=== PATIENT | male | born 1995 | race African-American/Black ===

== ENCOUNTER → 2016-12-05 | Outpatient (CLI) | payer MEDICAID | LOC: M OUTALCOH 13:12 | PROVIDERS: ATTEND Psychiatry & Neurology Psychiatry | DX: Z13.9 Encounter for screening, unspecified (principal); F12.10 Cannabis abuse, uncomplicated ==

== ENCOUNTER 2016-12-12 13:44 | Outpatient (RCR) | payer SELFPAY | END 2017-01-06 | LOC: M OUTALCOH 13:44 | PROVIDERS: ATTEND Psychiatry & Neurology Psychiatry | DX: F12.10 Cannabis abuse, uncomplicated (principal); Z72.0 Tobacco use ==

== ENCOUNTER 2016-12-25 08:27 | Emergency (ER) | payer MEDICAID, SELFPAY ==
[2016-12-25] MEDS ORDERED: diphenhydrAMINE INJ 50MG/ML VIAL (J1200) As Ordered ONE (09:19)
[2016-12-25] MEDS ORDERED: methylPREDNISolone INJ 125 MG/2 ML VIAL (J2930) As Ordered ONE (09:19)
[2016-12-25] MEDS ORDERED: HYDROCORTISONE 1% CREAM 30 GM As Ordered ONE (09:27)
--- NOTE | 2016-12-25 10:35 | EDDOCDS ---
Physician Documentation [facility] Name: Markus Coleman Age: 21 yrs Sex: Male : 1995 Arrival Date: 12/25/2016 Time: 08:27 Bed I4 / M4 Private MD: Disposition: 12/25/16 10:20 Discharged to Home/Self Care. Impression: Rash and other nonspecific skin eruption - Diffuse. - Condition is Stable. - Discharge Instructions: Rash, Pjbo-vq-Olir. - Prescriptions for Benadryl 25 mg Oral Capsule - take 2 capsule by ORAL route every 6 hours As needed; 30 tablet. Prednisone 20 mg Oral Tablet - take 3 tablet by ORAL route once daily for 5 days; 15 tablet. - Medication Reconciliation, Referral List Call for Appointment, Local Pharmacy Hours form. - [facility] ; When: 1 - 2 days; Reason: Recheck today's complaints, Continuance of care. Follow up: Ras[facility] Washburn; When: Call to arrange an appointment; Reason: Further diagnostic work-up, Recheck today's complaints, Continuance of care. Follow up: Emergency Department; Reason: Worsening of conditions. - Problem is new. - Symptoms have improved. Historical: - Allergies: No known drug Allergies; - Home Meds: 1. Benadryl Oral PRN (Last dose: 12/24/2016 20:00) 2. albuterol sulfate 90 mcg/actuation Inhl HFAA 1 puff Has not had for 2 weeks PRN 3. Symbicort 80-4.5 mcg/actuation inhalation HFAA 2 puffs Has not had for 2 weeks PRN - PMHx: Asthma; - PSHx: none; - Social history: Smoking status: Patient uses tobacco products, heavy tobacco smoker. No barriers to communication noted, The patient speaks fluent Solomon Islander, Speaks appropriately for age. - Family history: Not pertinent. - : The pt / caregiver states he / she is not on anticoagulants. Home medication list is obtained from the patient. - Exposure Risk Screening:: None identified. Vital Signs: 12/25 08:46 BP 149 / 87; Pulse 78; Resp 18; Temp 98.4(O); Pulse Ox 98% on R/A; Weight 78.02 kg / ck1 172 lbs (R); Height 5 ft. 10 in. (177.80 cm) (R); Pain 0/10; 10:25 BP 117 / 64; Pulse 76; Resp 18; Temp 98.4(O); Pulse Ox 97% on R/A; Pain 0/10; jml1 08:46 Body Mass Index 24.68 (78.02 kg, 177.80 cm) ck1 MDM: 09:11 IV Saline Lock ordered. ef1 09:11 Solu-MEDROL 125 mg IVP once ordered. ef1 09:11 Hydrocortisone Cream 1 % 1 applic Topical once ordered. ef1 09:11 diphenhydrAMINE 50 mg IVP once ordered. ef1 09:43 Financial registration complete. mm15 10: [facility] Payment Agreement was scanned into [employer] and attached to record. mm15 Administered Medications: 09:25 Drug: diphenhydrAMINE 50 mg [diphenhydramine 50 mg/mL injection solution (1 mL)] Route: kr3 IVP; Site: right antecubital; 09:28 Drug: Solu-MEDROL 125 mg [Solu-Medrol 500 mg intravenous solution (125 mg)] Route: IVP; kr3 Site: right antecubital; 09:30 Drug: Hydrocortisone 1 applic [hydrocortisone 1 % topical cream (1 applic)] Route: kr3 Topical; Site: affected area; Signatures: Nayana Lai RN RN ck1 Dulce Durant RN RN kr3 Meche Anderson PA-C PA-C ef1 Ross Simpson mm15 The chart was reviewed and I authenticate all verbal orders and agree with the evaluation and treatment provided.Attachments: 10: [facility] Payment Agreement mm15 MTDD
--- NOTE | 2016-12-25 10:35 | EDDOCDS ---
Nurse's Notes [facility] Name: Markus Coleman Age: 21 yrs Sex: Male : 1995 Arrival Date: 12/25/2016 Time: 08:27 Bed I4 / M4 Private MD: Diagnosis: Rash and other nonspecific skin eruption-Diffuse Presentation: 12/25 08:44 Presenting complaint: Patient states: "allergic reaction to something last night, I ck1 dont know what". Woke up to hives on face and throughout body. Adult Sepsis Screening: The patient does not have new or worsening altered mentation. Patient's respiratory rate is less than 22. Systolic blood pressure is greater than 100. Patient has a qSOFA score of 0- Negative Sepsis Screen. Suicide/Homicide risk assessment- the patient denies having any suicidal and/or homicidal ideations and does not present with any other emotional, behavioral or mental health complaints. Status: Patient is not a community service manager or dependent. Transition of care: patient was not received from another setting of care. 08:44 Acuity: JJ Level 5 ck1 08:44 Method Of Arrival: Walkin/Carried/Asstd ck1 09:30 Acuity level changed due to complexity of care. kr3 09:30 Acuity: JJ Level 3 kr3 Triage Assessment: 08:47 General: Appears in no apparent distress, comfortable, Behavior is appropriate for age, ck1 cooperative. Pain: Denies pain. HIV screening NA for this visit Offered previously. Neurological: Level of Consciousness is awake, alert, obeys commands, Oriented to person, place, time. Derm: Skin is intact, is healthy with good turgor, Skin is normal, Reports itching. Historical: - Allergies: No known drug Allergies; - Home Meds: 1. Benadryl Oral PRN (Last dose: 12/24/2016 20:00) 2. albuterol sulfate 90 mcg/actuation Inhl HFAA 1 puff Has not had for 2 weeks PRN 3. Symbicort 80-4.5 mcg/actuation inhalation HFAA 2 puffs Has not had for 2 weeks PRN - PMHx: Asthma; - PSHx: none; - Social history: Smoking status: Patient uses tobacco products, heavy tobacco smoker. No barriers to communication noted, The patient speaks fluent Lithuanian, Speaks appropriately for age. - Family history: Not pertinent. - : The pt / caregiver states he / she is not on anticoagulants. Home medication list is obtained from the patient. - Exposure Risk Screening:: None identified. Screenin:28 Screening information is obtained from the patient. Fall risk: No risks identified. kr3 Assistance ADL's: requires no assistance with activities of daily living. Abuse/DV Screen: The patient / caregiver reports he/she is: not in a situation that causes fear, pain or injury. Nutritional screening: No deficits noted. Advance Directives: Currently, there is no health care proxy. home support is adequate. Assessment: 09:28 General: Appears in no apparent distress, comfortable, Behavior is appropriate for age, kr3 cooperative. Pain: Denies pain. Neurological: Level of Consciousness is awake, alert. EENT: Denies difficulty swallowing. Respiratory: Airway is patent Respiratory pattern is regular. Derm: Rash noted that is itchy. 10:34 Reassessment: Patient appears in no apparent distress at this time. Patient denies pain kr3 at this time. Patient states feeling better. Respiratory: Respiratory effort is even, unlabored. Vital Signs: 08:46 BP 149 / 87; Pulse 78; Resp 18; Temp 98.4(O); Pulse Ox 98% on R/A; Weight 78.02 kg (R); ck1 Height 5 ft. 10 in. (177.80 cm) (R); Pain 0/10; 10:25 BP 117 / 64; Pulse 76; Resp 18; Temp 98.4(O); Pulse Ox 97% on R/A; Pain 0/10; jml1 08:46 Body Mass Index 24.68 (78.02 kg, 177.80 cm) ck1 Vitals: 08:46 Log In Time: December 25, 2016 at 08:25. ck1 ED Course: 08:28 Patient visited by Ross Simpson. mm15 08:28 Patient moved to Waiting mm15 08:44 Triage Initiated ck1 08:47 Patient moved to MTA Wait ck1 09:03 Patient moved to I4 / M4 ck1 09:04 [facility] ef1 09:04 Gee Jones MD is Attending Physician. ef1 09:04 Patient visited by Meche Anderson PA-C. ef1 09:28 The patient / caregiver is instructed regarding the plan of care and ED course. Patient kr3 has correct armband on for positive identification. 09:28 Inserted saline lock: 20 gauge in right antecubital area The patient tolerated the kr3 procedure well. 09:29 No procedures done that require assistance. kr3 09:37 Patient visited by Meche Anderson PA-C. ef1 10:08 Patient visited by Carmen Michele RN. mk4 10:19 [facility] Payment Agreement was scanned into [employer] and attached to record. mm15 10:20 [facility] is Referral Physician. ef1 10:20 Ras[facility] Washburn is Referral Physician. ef1 10:25 Patient visited by Connor Daly. jml1 Administered Medications: 09:25 Drug: diphenhydrAMINE 50 mg [diphenhydramine 50 mg/mL injection solution (1 mL)] Route: kr3 IVP; Site: right antecubital; 09:28 Drug: Solu-MEDROL 125 mg [Solu-Medrol 500 mg intravenous solution (125 mg)] Route: IVP; kr3 Site: right antecubital; 09:30 Drug: Hydrocortisone 1 applic [hydrocortisone 1 % topical cream (1 applic)] Route: kr3 Topical; Site: affected area; Order Results: There are currently no results for this order. Outcome: 09:29 No special radiology studies were completed. kr3 10:20 Discharge ordered by Provider. ef1 10:33 Discharge Assessment: patient administered narcotics - no. The following High Risk kr3 Discharge criteria are identified: None. Discharged to home ambulatory, with friend. Condition: stable. Discharge instructions given to patient, Instructed on discharge instructions, follow up and referral plans. medication usage, no driving heavy equipment, no drinking with medication, Demonstrated understanding of instructions, medications, Pt was receptive of discharge instructions/ teaching. Prescriptions given X 2. Property sent home with patient. 10:34 Patient left the ED. kr3 Signatures: Nayana Lai,RN RN ck1 Dulce Durant RN RN kr3 Meche Anderson PA-C PA-C ef1 Connor Daly jml1 Ross Simpson mm15 Carmen Michele RN RN mk4 MTDD
--- NOTE | 2016-12-27 11:35 | EDDOCDS ---
Physician Documentation [facility] Name: Markus Coleman Age: 21 yrs Sex: Male : 1995 Arrival Date: 12/25/2016 Time: 08:27 Bed I4 / M4 Private MD: Disposition: 12/25/16 10:20 Discharged to Home/Self Care. Impression: Rash and other nonspecific skin eruption - Diffuse. - Condition is Stable. - Discharge Instructions: Rash, Wxuq-sg-Blal. - Prescriptions for Benadryl 25 mg Oral Capsule - take 2 capsule by ORAL route every 6 hours As needed; 30 tablet. Prednisone 20 mg Oral Tablet - take 3 tablet by ORAL route once daily for 5 days; 15 tablet. - Medication Reconciliation, Referral List Call for Appointment, Local Pharmacy Hours form. - [facility] ; When: 1 - 2 days; Reason: Recheck today's complaints, Continuance of care. Follow up: [facility]; When: Call to arrange an appointment; Reason: Further diagnostic work-up, Recheck today's complaints, Continuance of care. Follow up: Emergency Department; Reason: Worsening of conditions. - Problem is new. - Symptoms have improved. Historical: - Allergies: No known drug Allergies; - Home Meds: 1. Benadryl Oral PRN (Last dose: 12/24/2016 20:00) 2. albuterol sulfate 90 mcg/actuation Inhl HFAA 1 puff Has not had for 2 weeks PRN 3. Symbicort 80-4.5 mcg/actuation inhalation HFAA 2 puffs Has not had for 2 weeks PRN - PMHx: Asthma; - PSHx: none; - Social history: Smoking status: Patient uses tobacco products, heavy tobacco smoker. No barriers to communication noted, The patient speaks fluent Namibian, Speaks appropriately for age. - Family history: Not pertinent. - : The pt / caregiver states he / she is not on anticoagulants. Home medication list is obtained from the patient. - Exposure Risk Screening:: None identified. Vital Signs: 12/25 08:46 BP 149 / 87; Pulse 78; Resp 18; Temp 98.4(O); Pulse Ox 98% on R/A; Weight 78.02 kg / ck1 172 lbs (R); Height 5 ft. 10 in. (177.80 cm) (R); Pain 0/10; 10:25 BP 117 / 64; Pulse 76; Resp 18; Temp 98.4(O); Pulse Ox 97% on R/A; Pain 0/10; jml1 08:46 Body Mass Index 24.68 (78.02 kg, 177.80 cm) ck1 MDM: 09:11 IV Saline Lock ordered. ef1 09:11 Solu-MEDROL 125 mg IVP once ordered. ef1 09:11 Hydrocortisone Cream 1 % 1 applic Topical once ordered. ef1 09:11 diphenhydrAMINE 50 mg IVP once ordered. ef1 09:43 Financial registration complete. mm15 : [facility] Payment Agreement was scanned into [employer] and attached to record. mm15 12/26 12:33 T-Sheet-- Draft Copy was scanned into [employer] and attached to record. gb Administered Medications: 12/25 09:25 Drug: diphenhydrAMINE 50 mg [diphenhydramine 50 mg/mL injection solution (1 mL)] Route: kr3 IVP; Site: right antecubital; 09:28 Drug: Solu-MEDROL 125 mg [Solu-Medrol 500 mg intravenous solution (125 mg)] Route: IVP; kr3 Site: right antecubital; 09:30 Drug: Hydrocortisone 1 applic [hydrocortisone 1 % topical cream (1 applic)] Route: kr3 Topical; Site: affected area; Signatures: Helena Santos, Reg Reg Nayana Gay RN RN ck1 Dulce Durant RN RN kr3 Meche Anderson PA-C PA-C ef1 Ross Simpson 15 The chart was reviewed and I authenticate all verbal orders and agree with the evaluation and treatment provided.Attachments: : [facility] Payment Agreement mm15 12/26 12:33 T-Sheet-- Draft Copy gb Chart Complete MTDD
--- NOTE | 2016-12-27 11:35 | EDDOCDS ---
Physician Documentation [facility] Name: Markus Coleman Age: 21 yrs Sex: Male : 1995 Arrival Date: 12/25/2016 Time: 08:27 Bed I4 / M4 Private MD: Disposition: 12/25/16 10:20 Discharged to Home/Self Care. Impression: Rash and other nonspecific skin eruption - Diffuse. - Condition is Stable. - Discharge Instructions: Rash, Hgsi-ix-Qoqi. - Prescriptions for Benadryl 25 mg Oral Capsule - take 2 capsule by ORAL route every 6 hours As needed; 30 tablet. Prednisone 20 mg Oral Tablet - take 3 tablet by ORAL route once daily for 5 days; 15 tablet. - Medication Reconciliation, Referral List Call for Appointment, Local Pharmacy Hours form. - [facility] ; When: 1 - 2 days; Reason: Recheck today's complaints, Continuance of care. Follow up: [facility] Washburn; When: Call to arrange an appointment; Reason: Further diagnostic work-up, Recheck today's complaints, Continuance of care. Follow up: Emergency Department; Reason: Worsening of conditions. - Problem is new. - Symptoms have improved. Historical: - Allergies: No known drug Allergies; - Home Meds: 1. Benadryl Oral PRN (Last dose: 12/24/2016 20:00) 2. albuterol sulfate 90 mcg/actuation Inhl HFAA 1 puff Has not had for 2 weeks PRN 3. Symbicort 80-4.5 mcg/actuation inhalation HFAA 2 puffs Has not had for 2 weeks PRN - PMHx: Asthma; - PSHx: none; - Social history: Smoking status: Patient uses tobacco products, heavy tobacco smoker. No barriers to communication noted, The patient speaks fluent Ecuadorean, Speaks appropriately for age. - Family history: Not pertinent. - : The pt / caregiver states he / she is not on anticoagulants. Home medication list is obtained from the patient. - Exposure Risk Screening:: None identified. Vital Signs: 12/25 08:46 BP 149 / 87; Pulse 78; Resp 18; Temp 98.4(O); Pulse Ox 98% on R/A; Weight 78.02 kg / ck1 172 lbs (R); Height 5 ft. 10 in. (177.80 cm) (R); Pain 0/10; 10:25 BP 117 / 64; Pulse 76; Resp 18; Temp 98.4(O); Pulse Ox 97% on R/A; Pain 0/10; jml1 08:46 Body Mass Index 24.68 (78.02 kg, 177.80 cm) ck1 MDM: 09:11 IV Saline Lock ordered. ef1 09:11 Solu-MEDROL 125 mg IVP once ordered. ef1 09:11 Hydrocortisone Cream 1 % 1 applic Topical once ordered. ef1 09:11 diphenhydrAMINE 50 mg IVP once ordered. ef1 09:43 Financial registration complete. mm15 : [facility] Payment Agreement was scanned into [employer] and attached to record. mm15 12/26 12:33 T-Sheet-- Draft Copy was scanned into [employer] and attached to record. gb Administered Medications: 12/25 09:25 Drug: diphenhydrAMINE 50 mg [diphenhydramine 50 mg/mL injection solution (1 mL)] Route: kr3 IVP; Site: right antecubital; 09:28 Drug: Solu-MEDROL 125 mg [Solu-Medrol 500 mg intravenous solution (125 mg)] Route: IVP; kr3 Site: right antecubital; 09:30 Drug: Hydrocortisone 1 applic [hydrocortisone 1 % topical cream (1 applic)] Route: kr3 Topical; Site: affected area; Signatures: Helena Santos, Reg Reg Nayana Gay RN RN ck1 Dulce Durant RN RN kr3 Meche Anderson PA-C PA-C ef1 Ross Simpson 15 The chart was reviewed and I authenticate all verbal orders and agree with the evaluation and treatment provided.Attachments: : [facility] Payment Agreement mm15 12/26 12:33 T-Sheet-- Draft Copy gb Chart Complete MTDD
--- NOTE | 2016-12-27 11:35 | EDDOCDS ---
Nurse's Notes [facility] Name: Markus Coleman Age: 21 yrs Sex: Male : 1995 Arrival Date: 12/25/2016 Time: 08:27 Bed I4 / M4 Private MD: Diagnosis: Rash and other nonspecific skin eruption-Diffuse Presentation: 12/25 08:44 Presenting complaint: Patient states: "allergic reaction to something last night, I ck1 dont know what". Woke up to hives on face and throughout body. Adult Sepsis Screening: The patient does not have new or worsening altered mentation. Patient's respiratory rate is less than 22. Systolic blood pressure is greater than 100. Patient has a qSOFA score of 0- Negative Sepsis Screen. Suicide/Homicide risk assessment- the patient denies having any suicidal and/or homicidal ideations and does not present with any other emotional, behavioral or mental health complaints. Status: Patient is not a supervisor volunteer services or dependent. Transition of care: patient was not received from another setting of care. 08:44 Acuity: JJ Level 5 ck1 08:44 Method Of Arrival: Walkin/Carried/Asstd ck1 09:30 Acuity level changed due to complexity of care. kr3 09:30 Acuity: JJ Level 3 kr3 Triage Assessment: 08:47 General: Appears in no apparent distress, comfortable, Behavior is appropriate for age, ck1 cooperative. Pain: Denies pain. HIV screening NA for this visit Offered previously. Neurological: Level of Consciousness is awake, alert, obeys commands, Oriented to person, place, time. Derm: Skin is intact, is healthy with good turgor, Skin is normal, Reports itching. Historical: - Allergies: No known drug Allergies; - Home Meds: 1. Benadryl Oral PRN (Last dose: 12/24/2016 20:00) 2. albuterol sulfate 90 mcg/actuation Inhl HFAA 1 puff Has not had for 2 weeks PRN 3. Symbicort 80-4.5 mcg/actuation inhalation HFAA 2 puffs Has not had for 2 weeks PRN - PMHx: Asthma; - PSHx: none; - Social history: Smoking status: Patient uses tobacco products, heavy tobacco smoker. No barriers to communication noted, The patient speaks fluent Khmer, Speaks appropriately for age. - Family history: Not pertinent. - : The pt / caregiver states he / she is not on anticoagulants. Home medication list is obtained from the patient. - Exposure Risk Screening:: None identified. Screenin:28 Screening information is obtained from the patient. Fall risk: No risks identified. kr3 Assistance ADL's: requires no assistance with activities of daily living. Abuse/DV Screen: The patient / caregiver reports he/she is: not in a situation that causes fear, pain or injury. Nutritional screening: No deficits noted. Advance Directives: Currently, there is no health care proxy. home support is adequate. Assessment: 09:28 General: Appears in no apparent distress, comfortable, Behavior is appropriate for age, kr3 cooperative. Pain: Denies pain. Neurological: Level of Consciousness is awake, alert. EENT: Denies difficulty swallowing. Respiratory: Airway is patent Respiratory pattern is regular. Derm: Rash noted that is itchy. 10:34 Reassessment: Patient appears in no apparent distress at this time. Patient denies pain kr3 at this time. Patient states feeling better. Respiratory: Respiratory effort is even, unlabored. Vital Signs: 08:46 BP 149 / 87; Pulse 78; Resp 18; Temp 98.4(O); Pulse Ox 98% on R/A; Weight 78.02 kg (R); ck1 Height 5 ft. 10 in. (177.80 cm) (R); Pain 0/10; 10:25 BP 117 / 64; Pulse 76; Resp 18; Temp 98.4(O); Pulse Ox 97% on R/A; Pain 0/10; jml1 08:46 Body Mass Index 24.68 (78.02 kg, 177.80 cm) ck1 Vitals: 08:46 Log In Time: December 25, 2016 at 08:25. ck1 ED Course: 08:28 Patient visited by Ross Simpson. mm15 08:28 Patient moved to Waiting mm15 08:44 Triage Initiated ck1 08:47 Patient moved to MTA Wait ck1 09:03 Patient moved to I4 / M4 ck1 09:04 Meche Anderson PA-C is [facility]. ef1 09:04 Gee Jones MD is Attending Physician. ef1 09:04 Patient visited by Meche Anderson PA-C. ef1 09:28 The patient / caregiver is instructed regarding the plan of care and ED course. Patient kr3 has correct armband on for positive identification. 09:28 Inserted saline lock: 20 gauge in right antecubital area The patient tolerated the kr3 procedure well. 09:29 No procedures done that require assistance. kr3 09:37 Patient visited by Meche Anderson PA-C. ef1 10:08 Patient visited by Carmen Michele RN. mk4 10:19 [facility] Payment Agreement was scanned into [employer] and attached to record. mm15 10:20 [facility] is Referral Physician. ef1 10:20 Rasheed Washburn is Referral Physician. ef1 10:25 Patient visited by Connor Daly. jml1 12/26 12:33 T-Sheet-- Draft Copy was scanned into [employer] and attached to record. gb Administered Medications: 12/25 09:25 Drug: diphenhydrAMINE 50 mg [diphenhydramine 50 mg/mL injection solution (1 mL)] Route: kr3 IVP; Site: right antecubital; 09:28 Drug: Solu-MEDROL 125 mg [Solu-Medrol 500 mg intravenous solution (125 mg)] Route: IVP; kr3 Site: right antecubital; 09:30 Drug: Hydrocortisone 1 applic [hydrocortisone 1 % topical cream (1 applic)] Route: kr3 Topical; Site: affected area; Order Results: There are currently no results for this order. Outcome: 09:29 No special radiology studies were completed. kr3 10:20 Discharge ordered by Provider. ef1 10:33 Discharge Assessment: patient administered narcotics - no. The following High Risk kr3 Discharge criteria are identified: None. Discharged to home ambulatory, with friend. Condition: stable. Discharge instructions given to patient, Instructed on discharge instructions, follow up and referral plans. medication usage, no driving heavy equipment, no drinking with medication, Demonstrated understanding of instructions, medications, Pt was receptive of discharge instructions/ teaching. Prescriptions given X 2. Property sent home with patient. 10:34 Patient left the ED. kr3 Signatures: Helena Santos, Reg Reg gb Nayana Lai RN RN ck1 Dulce Durant RN RN kr3 Meche Anderson PA-C PA-C ef1 Connor Daly jml1 Ross Simpson mm15 Carmen Michele, RN RN mk4 Chart Complete MTDD
== END 2016-12-25 10:34 | disposition home or self-care (01) ==
LOC: M ED 08:27
DX: R21 Rash and other nonspecific skin eruption (principal); J45.909 Unspecified asthma, uncomplicated; F17.210 Nicotine dependence, cigarettes, uncomplicated; Z79.899 Other long term (current) drug therapy
CPT/HCPCS: 96374; 96375; 99283; J1200; J2930

== ENCOUNTER → 2017-02-27 | Outpatient (REF) | payer OTHER | LOC: M LAB REF 16:15 | PROVIDERS: ATTEND Surgery | DX: Z20.2 Contact with and (suspected) exposure to infections with a predominantly sexual mode of transmission (principal) ==

== ENCOUNTER 2017-08-17 12:58 | Emergency (ER) | payer MEDICAID, OTHER ==
[~2017-08-17] VITALS: Ht 177.8 cm; Wt 77.3 kg
[2017-08-17 12:59] VITALS: BP 144/58
[2017-08-17] MEDS ORDERED: ACETAMINOPHEN 325 MG TAB PO ONE (13:30)
[2017-08-17] MEDS ORDERED: ALBU17IN INH (13:59)
--- NOTE | 2017-08-17 14:01 | REP ---
CT Head without contrast HISTORY: Headache COMPARISON: 06/14/2009 There is no intraparenchymal hemorrhage, acute infarct, mass or midline shift. The ventricular system is normal in appearance. There is no extra cerebral collection. There is no fracture. The visualized sinuses are clear. IMPRESSION: There is no intracranial lesion. Signed by Justino Barrientos MD 08/17/2017 01:52 P
== END 2017-08-17 14:00 | disposition home or self-care (01) ==
LOC: M ED 12:58
DX: G44.209 Tension-type headache, unspecified, not intractable (principal); J45.909 Unspecified asthma, uncomplicated; F17.200 Nicotine dependence, unspecified, uncomplicated

== ENCOUNTER 2017-10-05 00:04 | Emergency (ER) | payer MEDICAID ==
[~2017-10-05] VITALS: Ht 177.8 cm; Wt 75.0 kg
[~2017-10-05 00:04] MED LIST: ALBU17IN INH
[2017-10-05] MEDS ORDERED: KETOROLAC 30 MG/ML VIAL (J1885) IV ONE (03:45)
[2017-10-05] MEDS ORDERED: NS 1,000 ML IV ONE (03:45)
[2017-10-05 04:16] LABS: BASO % 0.5 % (0.0-1.0); EOS # 0.2 10^3/uL (0.0-0.50); EOS % 4.1 % (0.0-3.0); IMMATURE GRANULOCYTE % 0.2 % (0-0); LYMPH # 1.9 10^3/uL (1.5-6.5); LYMPH % 44.8 % (24.0-44.0); MEAN CORPUSCULAR HEMOGLOBIN 31.1 pg (27.0-33.0); MEAN CORPUSCULAR HGB CONC 34.5 g/dl (32.0-36.5); MEAN CORPUSCULAR VOLUME 90.2 fl (80.0-96.0); MONO # 0.4 10^3/uL (0.0-0.8); MONO % 9.7 % (0.0-5.0); NEUTROPHILS # 1.7 10^3/uL (1.8-7.7); NEUTROPHILS % 40.7 % (36.0-66.0); PLATELET COUNT, AUTOMATED 161 10^3/uL (150-450); RED CELL DISTRIBUTION WIDTH 12.7 % (11.5-14.5); WHITE BLOOD COUNT 4.1 10^3/uL (4.0-10.0)
[2017-10-05 04:42] LABS: ANION GAP 8 MEQ/L (8-16); BLOOD UREA NITROGEN 9 MG/DL (7-18); CALCIUM LEVEL 8.2 MG/DL (8.5-10.1); CARBON DIOXIDE LEVEL 28 MEQ/L (21-32); CHLORIDE LEVEL 106 MEQ/L (98-107); CREATININE FOR GFR 0.92 MG/DL (0.70-1.30); ERYTHROCYTE SEDIMENTATION RATE 3 mm/hr (0-15); GLOMERULAR FILTRATION RATE > 60.0 (>60); GLUCOSE, FASTING 96 MG/DL (70-105); POTASSIUM SERUM 3.9 MEQ/L (3.5-5.1); SODIUM LEVEL 142 MEQ/L (136-145)
[2017-10-05] MEDS ORDERED: NAPR500T PO (06:18)
[2017-10-05 06:40] VITALS: BP 118/60
--- NOTE | 2017-10-05 07:55 | REP ---
Clinical: Wheezing. History of asthma . Comparison: 10/15/2015 . Technique: PA and lateral. Findings: The mediastinum and cardiac silhouette are normal. The lung jones are clear and without acute consolidation, effusion, or pneumothorax. The skeletal structures are intact and normal. Impression: 1. No acute cardiopulmonary process. Signed by Nawaf Aguilar MD 10/05/2017 07:47 A
--- NOTE | 2017-10-05 09:24 | ECGEPIP ---
Stationary ECG Study [facility] - ED Test Date: 2017-10-05 Pat Name: CHANDU ENNIS Department: Room: - Gender: M Control Engineer: flako : 1995 Requested By: KLARISSA Gutierrez Order Number: [id number] Reading MD: Gee Jones Measurements Intervals Jemison Rate: 62 P: 38 NM: 179 QRS: 101 QRSD: 95 T: 49 QT: 400 QTc: 408 Interpretive Statements SINUS RHYTHM WITH OCCASIONAL ECTOPIC PREMATURE COMPLEXES RIGHT AXIS DEVIATION BENIGN EARLY REPOLARIZATION NO PRIORS FOR COMPARISON Electronically Signed On 10-05-2017 9:23:38 EST by Gee Jones
== END 2017-10-05 06:42 | disposition home or self-care (01) ==
LOC: M ED 00:04
DX: R07.89 Other chest pain (principal); F17.200 Nicotine dependence, unspecified, uncomplicated
CPT/HCPCS: 71020; 80048; 82550; 82553; 85025; 85379; 85652; 86140; 93005; 93041; 94760; 96361; 96374; 99285; J1885

== ENCOUNTER 2017-11-28 14:45 | Emergency (ER) | payer MEDICAID, SELFPAY ==
[2017-11-28 16:02] LABS: KETONE, URINE AUTO RFX NEGATIVE (NEGATIVE); NITRITE, URINE AUTO RFX NEGATIVE (NEGATIVE); RBC, URINE AUTO RFX 2 /HPF (0-3); SPECIFIC GRAVITY UR AUTO RFX 1.017 (1.002-1.035); SQUAM EPITHELIAL CELL UR AURFX 0 /HPF (0-6)
[2017-11-28 16:03] LABS: LEUKOCYTE ESTERASE UR AUTO RFX 2+ (NEGATIVE); WBC, URINE AUTO RFX 23 /HPF (0-3)
[2017-11-28] MEDS: KETOROLAC 30 MG/ML VIAL (J1885) IV (16:33)
[2017-11-28] MEDS: ONDANSETRON 4MG/2ML VIAL (J2405) IV (16:33)
[2017-11-28 16:40] LABS: BASO % 0.3 % (0.0-1.0); EOS # 0.1 10^3/uL (0.0-0.50); EOS % 2.9 % (0.0-3.0); HEMATOCRIT 39.3 % (42.0-52.0); HEMOGLOBIN 13.6 g/dl (14.0-18.0); IMMATURE GRANULOCYTE % 0.3 % (0-0); LYMPH # 1.4 10^3/uL (1.5-6.5); LYMPH % 41.8 % (24.0-44.0); MEAN CORPUSCULAR HEMOGLOBIN 31.4 pg (27.0-33.0); MEAN CORPUSCULAR HGB CONC 34.6 g/dl (32.0-36.5); MEAN CORPUSCULAR VOLUME 90.8 fl (80.0-96.0); MONO # 0.4 10^3/uL (0.0-0.8); MONO % 10.5 % (0.0-5.0); NEUTROPHILS # 1.5 10^3/uL (1.8-7.7); NEUTROPHILS % 44.2 % (36.0-66.0); PLATELET COUNT, AUTOMATED 150 10^3/uL (150-450); RED BLOOD COUNT 4.33 10^6/uL (4.30-6.10); RED CELL DISTRIBUTION WIDTH 12.9 % (11.5-14.5); WHITE BLOOD COUNT 3.4 10^3/uL (4.0-10.0)
[2017-11-28 16:49] LABS: INR 0.98; PROTHROMBIN TIME 13.1 SECONDS (12.4-14.5)
[2017-11-28 17:05] LABS: ALBUMIN 3.8 GM/DL (3.2-5.2); ALBUMIN/GLOBULIN RATIO 1.31 (1.00-1.93); ALKALINE PHOSPHATASE 61 U/L (45-117); ALT/SGPT 23 U/L (12-78); ANION GAP 5 MEQ/L (8-16); AST/SGOT 18 U/L (7-37); BILIRUBIN,DIRECT 0.2 MG/DL (0.0-0.2); BILIRUBIN,TOTAL 0.6 MG/DL (0.2-1.0); BLOOD UREA NITROGEN 10 MG/DL (7-18); CALCIUM LEVEL 8.3 MG/DL (8.5-10.1); CARBON DIOXIDE LEVEL 30 MEQ/L (21-32); CHLORIDE LEVEL 107 MEQ/L (98-107); GLOMERULAR FILTRATION RATE > 60.0 (>60); GLUCOSE, FASTING 87 MG/DL (70-105); LIPASE 122 U/L (73-393); POTASSIUM SERUM 4.2 MEQ/L (3.5-5.1); SODIUM LEVEL 142 MEQ/L (136-145); TOTAL PROTEIN 6.7 GM/DL (6.4-8.2)
== END 2017-11-28 17:38 | disposition home or self-care (01) ==
LOC: M ED 14:45
DX: N10 Acute pyelonephritis (principal); J45.909 Unspecified asthma, uncomplicated
CPT/HCPCS: J2405

== ENCOUNTER 2018-01-09 14:33 | Emergency (ER) | payer OTHER, MEDICAID ==
[2018-01-09 15:51] LABS: BASO % 0.3 % (0.0-1.0); EOS # 0.1 10^3/uL (0.0-0.50); EOS % 3.1 % (0.0-3.0); HEMATOCRIT 39.4 % (42.0-52.0); HEMOGLOBIN 13.5 g/dl (14.0-18.0); IMMATURE GRANULOCYTE % 0.3 % (0-3.0); LYMPH # 1.5 10^3/uL (1.5-6.5); LYMPH % 46.9 % (24.0-44.0); MEAN CORPUSCULAR HEMOGLOBIN 31.4 pg (27.0-33.0); MEAN CORPUSCULAR HGB CONC 34.3 g/dl (32.0-36.5); MEAN CORPUSCULAR VOLUME 91.6 fl (80.0-96.0); MONO # 0.3 10^3/uL (0.0-0.8); MONO % 8.1 % (0.0-5.0); NEUTROPHILS # 1.3 10^3/uL (1.8-7.7); NEUTROPHILS % 41.3 % (36.0-66.0); PLATELET COUNT, AUTOMATED 157 10^3/uL (150-450); RED CELL DISTRIBUTION WIDTH 12.6 % (11.5-14.5); WHITE BLOOD COUNT 3.2 10^3/uL (4.0-10.0)
[2018-01-09 15:56] LABS: KETONE, URINE AUTO RFX NEGATIVE (NEGATIVE); LEUKOCYTE ESTERASE UR AUTO RFX TRACE (NEGATIVE); MUCUS, URINE RFX SMALL (NEGATIVE); NITRITE, URINE AUTO RFX NEGATIVE (NEGATIVE); RBC, URINE AUTO RFX 1 /HPF (0-3); SQUAM EPITHELIAL CELL UR AURFX 0 /HPF (0-6); WBC, URINE AUTO RFX 10 /HPF (0-3)
[2018-01-09] MEDS: ONDANSETRON 4 MG ORAL DISINTEGRATING TAB (S0181) PO (16:01)
[2018-01-09 16:20] LABS: ALBUMIN/GLOBULIN RATIO 1.29 (1.00-1.93); ALKALINE PHOSPHATASE 58 U/L (45-117); ALT/SGPT 27 U/L (12-78); ANION GAP 5 MEQ/L (8-16); AST/SGOT 17 U/L (7-37); BILIRUBIN,DIRECT 0.1 MG/DL (0.0-0.2); BILIRUBIN,TOTAL 0.3 MG/DL (0.2-1.0); BLOOD UREA NITROGEN 12 MG/DL (7-18); CALCIUM LEVEL 8.2 MG/DL (8.5-10.1); CARBON DIOXIDE LEVEL 30 MEQ/L (21-32); CHLORIDE LEVEL 106 MEQ/L (98-107); CREATININE FOR GFR 0.91 MG/DL (0.70-1.30); GLOMERULAR FILTRATION RATE > 60.0 (>60); GLUCOSE, FASTING 78 MG/DL (70-100); LIPASE 110 U/L (73-393); POTASSIUM SERUM 4.1 MEQ/L (3.5-5.1); SODIUM LEVEL 141 MEQ/L (136-145); TOTAL PROTEIN 7.1 GM/DL (6.4-8.2)
[2018-01-09] MEDS: AZITHROMYCIN 250 MG TAB PO (17:24)
[2018-01-09] MEDS: cefTRIAXone SOD 250 MG VIAL (J0696) IM (17:24)
[2018-01-09 17:30] LABS: CHLAMYDIA DNA AMPLIFICATION NEGATIVE (NEGATIVE); GC DNA AMPLIFICATION NEGATIVE (NEGATIVE)
== END 2018-01-09 17:41 | disposition home or self-care (01) ==
LOC: M ED 14:33
DX: N39.0 Urinary tract infection, site not specified (principal); F17.210 Nicotine dependence, cigarettes, uncomplicated
CPT/HCPCS: J0696

== ENCOUNTER → 2018-01-25 | Outpatient (REF) | payer OTHER ==
[2018-01-25 18:35] LABS: MEAN CORPUSCULAR HEMOGLOBIN 30.9 pg (27.0-33.0); MEAN CORPUSCULAR HGB CONC 34.1 g/dl (32.0-36.5); MEAN CORPUSCULAR VOLUME 90.5 fl (80.0-96.0); PLATELET COUNT, AUTOMATED 189 10^3/uL (150-450); RED BLOOD COUNT 4.86 10^6/uL (4.30-6.10); RED CELL DISTRIBUTION WIDTH 12.2 % (11.5-14.5); WHITE BLOOD COUNT 3.1 10^3/uL (4.0-10.0)
[2018-01-25 18:53] LABS: FERRITIN 73 NG/ML (26-388)
[2018-01-25 18:53] LABS: IRON (FE) 121 UG/DL (65-175)
[2018-01-25 19:00] LABS: APPEARANCE, URINE CLEAR (CLEAR); BACTERIA, URINE AUTO NEGATIVE (NEGATIVE); BILIRUBIN, URINE AUTO NEGATIVE (NEGATIVE); BLOOD, URINE BLOOD NEGATIVE (NEGATIVE); COLOR, URINE YELLOW (YELLOW); GLUCOSE, URINE (UA) AUTO NEGATIVE (NEGATIVE); KETONE, URINE AUTO NEGATIVE (NEGATIVE); LEUKOCYTE ESTERASE, URINE AUTO NEGATIVE (NEGATIVE); NITRITE, URINE AUTO NEGATIVE (NEGATIVE); PROTEIN, URINE AUTO NEGATIVE (NEGATIVE); RBC, URINE AUTO 0 /HPF (0-3); SPECIFIC GRAVITY URINE AUTO 1.012 (1.002-1.035); SQUAMOUS EPITHELIAL CELL UR AU 0 /HPF (0-6); UROBILINOGEN, URINE AUTO 0.2 mg/dL (0.0-2.0); WBC, URINE AUTO 0 /HPF (0-3)
== END ==
LOC: M LAB REF 17:15
DX: R30.0 Dysuria (principal); K92.1 Melena
CPT/HCPCS: 83540

== ENCOUNTER → 2018-01-27 | Outpatient (CLI) | payer OTHER | LOC: M RAD 06:41 | DX: N39.0 Urinary tract infection, site not specified (principal) | CPT/HCPCS: 76775 ==

== ENCOUNTER 2018-02-22 23:19 | Emergency (ER) | payer OTHER ==
[2018-02-23] MEDS: DERMABOND TOPICAL SKIN ADHESIVE TOP (00:24)
[2018-02-23] MEDS ORDERED: NEOSPORIN OINT 0.9 GM PKT (FLOOR STOCK) As Ordered (02:13)
== END 2018-02-23 00:46 | disposition home or self-care (01) ==
LOC: M ED 23:19
DX: S01.81XA Laceration without foreign body of other part of head, initial encounter (principal); X58.XXXA Exposure to other specified factors, initial encounter; Y92.410 Unspecified street and highway as the place of occurrence of the external cause; Y93.9 Activity, unspecified; Y99.9 Unspecified external cause status; J45.909 Unspecified asthma, uncomplicated; F17.200 Nicotine dependence, unspecified, uncomplicated
CPT/HCPCS: 12013

== ENCOUNTER → 2018-03-02 | Outpatient (CLI) | payer OTHER | LOC: M WUC 11:33 | DX: M79.604 Pain in right leg (principal); Z91.81 History of falling | CPT/HCPCS: 73590 ==

== ENCOUNTER → 2018-05-22 | Outpatient (REF) | payer OTHER ==
[2018-05-22 21:59] LABS: APPEARANCE, URINE HAZY (CLEAR); BACTERIA, URINE AUTO NEGATIVE (NEGATIVE); BILIRUBIN, URINE AUTO NEGATIVE (NEGATIVE); BLOOD, URINE BLOOD NEGATIVE (NEGATIVE); COLOR, URINE YELLOW (YELLOW); GLUCOSE, URINE (UA) AUTO NEGATIVE (NEGATIVE); KETONE, URINE AUTO NEGATIVE (NEGATIVE); LEUKOCYTE ESTERASE, URINE AUTO 2+ (NEGATIVE); MUCUS, URINE SMALL (NEGATIVE); NITRITE, URINE AUTO NEGATIVE (NEGATIVE); PROTEIN, URINE AUTO NEGATIVE (NEGATIVE); RBC, URINE AUTO 13 /HPF (0-3); SPECIFIC GRAVITY URINE AUTO 1.027 (1.002-1.035); SQUAMOUS EPITHELIAL CELL UR AU 0 /HPF (0-6); UROBILINOGEN, URINE AUTO 0.2 mg/dL (0.0-2.0); WBC, URINE AUTO 95 /HPF (0-3)
== END ==
LOC: M LAB REF 10:00
DX: N39.0 Urinary tract infection, site not specified (principal)

== ENCOUNTER → 2018-06-10 | Outpatient (CLI) | payer OTHER | LOC: M RAD 15:51 | DX: R10.811 Right upper quadrant abdominal tenderness (principal); M54.9 Dorsalgia, unspecified | CPT/HCPCS: 76700 ==

== ENCOUNTER → 2018-06-10 | Outpatient (CLI) | payer OTHER ==
[2018-06-10 17:54] LABS: BASO % 0.8 % (0.0-1.0); EOS # 0.1 10^3/uL (0.0-0.50); EOS % 2.9 % (0.0-3.0); HEMATOCRIT 43.1 % (42.0-52.0); HEMOGLOBIN 14.5 g/dl (13.5-17.5); IMMATURE GRANULOCYTE % 0.3 % (0-3.0); LYMPH # 1.9 10^3/uL (1.5-6.5); LYMPH % 49.7 % (24.0-44.0); MEAN CORPUSCULAR HEMOGLOBIN 30.6 pg (27.0-33.0); MEAN CORPUSCULAR HGB CONC 33.6 g/dl (32.0-36.5); MEAN CORPUSCULAR VOLUME 90.9 fl (80.0-96.0); MONO # 0.4 10^3/uL (0.0-0.8); MONO % 11.8 % (0.0-5.0); NEUTROPHILS # 1.3 10^3/uL (1.8-7.7); NEUTROPHILS % 34.5 % (36.0-66.0); PLATELET COUNT, AUTOMATED 175 10^3/uL (150-450); RED BLOOD COUNT 4.74 10^6/uL (4.30-6.10); RED CELL DISTRIBUTION WIDTH 12.6 % (11.5-14.5); WHITE BLOOD COUNT 3.7 10^3/uL (4.0-10.0)
[2018-06-10 18:54] LABS: ALBUMIN 4.1 GM/DL (3.2-5.2); ALBUMIN/GLOBULIN RATIO 1.28 (1.00-1.93); ALKALINE PHOSPHATASE 57 U/L (45-117); ALT/SGPT 28 U/L (12-78); ANION GAP 6 MEQ/L (8-16); AST/SGOT 19 U/L (7-37); BILIRUBIN,TOTAL 0.7 MG/DL (0.2-1.0); BLOOD UREA NITROGEN 12 MG/DL (7-18); CALCIUM LEVEL 8.9 MG/DL (8.5-10.1); CARBON DIOXIDE LEVEL 31 MEQ/L (21-32); CHLORIDE LEVEL 104 MEQ/L (98-107); CREATININE FOR GFR 1.02 MG/DL (0.70-1.30); GLOMERULAR FILTRATION RATE > 60.0 (>60); GLUCOSE, FASTING 63 MG/DL (70-100); POTASSIUM SERUM 4.9 MEQ/L (3.5-5.1); SODIUM LEVEL 141 MEQ/L (136-145); TOTAL PROTEIN 7.3 GM/DL (6.4-8.2)
[2018-06-10 22:15] LABS: CHLAMYDIA DNA AMPLIFICATION NEGATIVE (NEGATIVE); GC DNA AMPLIFICATION NEGATIVE (NEGATIVE)
== END ==
LOC: M WUC 15:06
DX: R10.811 Right upper quadrant abdominal tenderness (principal)
CPT/HCPCS: 80053

== ENCOUNTER 2018-07-24 13:07 | Emergency (ER) | payer OTHER ==
[2018-07-24 13:57] LABS: HEMATOCRIT 41.9 % (42.0-52.0); HEMOGLOBIN 14.1 g/dl (13.5-17.5); MEAN CORPUSCULAR HEMOGLOBIN 30.7 pg (27.0-33.0); MEAN CORPUSCULAR HGB CONC 33.7 g/dl (32.0-36.5); MEAN CORPUSCULAR VOLUME 91.1 fl (80.0-96.0); PLATELET COUNT, AUTOMATED 168 10^3/uL (150-450); RED CELL DISTRIBUTION WIDTH 12.5 % (11.5-14.5)
[2018-07-24] MEDS: KETOROLAC 60 MG/2 ML VIAL (J1885) IM (14:10)
[2018-07-24 14:15] LABS: ANION GAP 5 MEQ/L (8-16); BLOOD UREA NITROGEN 13 MG/DL (7-18); C REACTIVE PROTEIN QUANTITATIV < 0.30 MG/DL (0.00-0.30); CALCIUM LEVEL 8.8 MG/DL (8.5-10.1); CARBON DIOXIDE LEVEL 28 MEQ/L (21-32); CHLORIDE LEVEL 106 MEQ/L (98-107); GLOMERULAR FILTRATION RATE > 60.0 (>60); GLUCOSE, FASTING 78 MG/DL (70-100); POTASSIUM SERUM 4.6 MEQ/L (3.5-5.1); SODIUM LEVEL 139 MEQ/L (136-145)
[2018-07-24 14:20] LABS: CPK CREATINE PHOSPHOKINASE 200 U/L (39-308); MB/CK RELATIVE INDEX 0.65 (< OR =4); TROPONIN I < 0.02 NG/ML (< 0.10)
[2018-07-24 15:28] LABS: ERYTHROCYTE SEDIMENTATION RATE 3 mm/hr (0-15)
== END 2018-07-24 15:04 | disposition home or self-care (01) ==
LOC: M ED 13:07
DX: R07.89 Other chest pain (principal); R06.02 Shortness of breath; R42 Dizziness and giddiness; F17.210 Nicotine dependence, cigarettes, uncomplicated
CPT/HCPCS: J1885

== ENCOUNTER → 2018-11-16 | Outpatient (REF) | payer OTHER ==
[~2018-11-16] MED LIST changes: +CIPR-249 PO; +IBUP-1022 PO; +NAPR-50 PO
[2018-11-16 18:08] LABS: BACTERIA, URINE AUTO NEGATIVE (NEGATIVE); MUCUS, URINE SMALL (NEGATIVE); RBC, URINE AUTO 1 /HPF (0-3); SQUAMOUS EPITHELIAL CELL UR AU 0 /HPF (0-6); WBC, URINE AUTO 1 /HPF (0-3)
[2018-11-17 11:19] LABS: CHLAMYDIA DNA AMPLIFICATION NEGATIVE (NEGATIVE); GC DNA AMPLIFICATION NEGATIVE (NEGATIVE)
== END ==
LOC: M LAB REF 16:46
PROVIDERS: ATTEND Physician Assistant
DX: R30.0 Dysuria (principal)

== ENCOUNTER → 2019-03-08 | Outpatient (REF) | payer MEDICAID ==
[~2019-03-08] MED LIST changes: -NAPR-50 PO; +NAPR-837 PO
[2019-03-08 18:38] LABS: BASO % 0.9 % (0.0-1.0); EOS # 0.1 10^3/uL (0.0-0.50); EOS % 1.7 % (0.0-3.0); HEMATOCRIT 42.5 % (42.0-52.0); HEMOGLOBIN 14.2 g/dl (13.5-17.5); LYMPH # 1.6 10^3/uL (1.5-6.5); MEAN CORPUSCULAR HEMOGLOBIN 30.5 pg (27.0-33.0); MEAN CORPUSCULAR HGB CONC 33.4 g/dl (32.0-36.5); MEAN CORPUSCULAR VOLUME 91.4 fl (80.0-96.0); MONO # 0.3 10^3/uL (0.0-0.8); MONO % 8.7 % (0.0-5.0); NEUTROPHILS # 1.4 10^3/uL (1.8-7.7); NEUTROPHILS % 41.4 % (36.0-66.0); PLATELET COUNT, AUTOMATED 183 10^3/uL (150-450); RED BLOOD COUNT 4.65 10^6/uL (4.30-6.10); WHITE BLOOD COUNT 3.5 10^3/uL (4.0-10.0)
[2019-03-08 18:45] LABS: ALBUMIN 4.2 GM/DL (3.2-5.2); ALT/SGPT 29 U/L (12-78); BILIRUBIN,TOTAL 0.4 MG/DL (0.2-1.0); BLOOD UREA NITROGEN 10 MG/DL (7-18); CALCIUM LEVEL 8.3 MG/DL (8.5-10.1); CARBON DIOXIDE LEVEL 29 MEQ/L (21-32); CHLORIDE LEVEL 106 MEQ/L (98-107); CHOLESTEROL LEVEL 141 MG/DL (<200); CHOLESTEROL RISK RATIO 2.238 (<5); CREATININE FOR GFR 0.92 MG/DL (0.70-1.30); FREE T4 1.07 NG/DL (0.76-1.46); GLOMERULAR FILTRATION RATE > 60.0 (>60); GLUCOSE, FASTING 86 MG/DL (70-100); HDL CHOLESTEROL 63 MG/DL (>40); LDL CHOLESTEROL 66 MG/DL (<100); NON-HDL-C 78 MG/DL; POTASSIUM SERUM 4.5 MEQ/L (3.5-5.1); SODIUM LEVEL 138 MEQ/L (136-145); TOTAL PROTEIN 7.1 GM/DL (6.4-8.2); TRIGLYCERIDES LEVEL 60 MG/DL (<150)
[2019-03-08 18:49] LABS: TOTAL 25(OH) VITAMIN D 12.2 NG/ML (30.0-100.0)
[2019-03-08 19:04] LABS: HEMOGLOBIN A1c 5.8 %
[2019-03-08 21:14] LABS: CHLAMYDIA DNA AMPLIFICATION NEGATIVE (NEGATIVE); GC DNA AMPLIFICATION NEGATIVE (NEGATIVE)
[2019-03-09 12:13] LABS: HIV 1&2 SCREEN CENTAUR NEGATIVE (NEGATIVE)
== END ==
LOC: M LAB REF 16:37
PROVIDERS: ATTEND Nurse Practitioner Adult Health
DX: Z11.3 Encounter for screening for infections with a predominantly sexual mode of transmission (principal)

== ENCOUNTER → 2019-04-13 | Outpatient (REF) | payer OTHER ==
[2019-04-14] LABS: CHLAMYDIA DNA AMPLIFICATION NEGATIVE (NEGATIVE); GC DNA AMPLIFICATION NEGATIVE (NEGATIVE)
== END ==
LOC: M LAB REF 09:12
PROVIDERS: ATTEND Physician Assistant
DX: Z20.2 Contact with and (suspected) exposure to infections with a predominantly sexual mode of transmission (principal)

== ENCOUNTER → 2019-07-05 | Outpatient (CLI) | payer MEDICAID, OTHER ==
--- NOTE | 2019-07-05 17:24 | REP ---
CERVICAL SPINE SERIES: Cervical spine was performed with 7 total views obtained. There is no compression fracture or malalignment. There is normal cervical lordosis. There is no prevertebral soft tissue swelling. Disc spaces are well preserved. Oblique views are grossly unremarkable. IMPRESSION: No radiographic evidence of fracture or dislocation. Recommend CT to rule out occult fracture. Electronically Signed by Brock Hyde MD 07/06/2019 12:16 A
--- NOTE | 2019-07-05 17:25 | REP ---
THORACIC SPINE: Three views of the thoracic spine are performed in the AP and lateral projections. No fracture or dislocation is seen. There is normal thoracic kyphosis. Posterior elements appear intact. IMPRESSION: No fracture or dislocation. Electronically Signed by Brock Hyde MD 07/06/2019 12:16 A
== END ==
LOC: M RAD 16:04
PROVIDERS: ATTEND Physician Assistant
DX: S10.93XA Contusion of unspecified part of neck, initial encounter (principal); X58.XXXA Exposure to other specified factors, initial encounter; Y92.89 Other specified places as the place of occurrence of the external cause

== ENCOUNTER → 2019-11-21 | Outpatient (REF) | payer OTHER ==
[2019-11-21 13:47] LABS: APPEARANCE, URINE CLEAR (CLEAR); BACTERIA, URINE AUTO 1+ (NEGATIVE); BILIRUBIN, URINE AUTO NEGATIVE (NEGATIVE); BLOOD, URINE BLOOD NEGATIVE (NEGATIVE); COLOR, URINE YELLOW (YELLOW); GLUCOSE, URINE (UA) AUTO NEGATIVE (NEGATIVE); KETONE, URINE AUTO NEGATIVE (NEGATIVE); LEUKOCYTE ESTERASE, URINE AUTO TRACE (NEGATIVE); MUCUS, URINE SMALL (NEGATIVE); NITRITE, URINE AUTO NEGATIVE (NEGATIVE); PROTEIN, URINE AUTO NEGATIVE (NEGATIVE); RBC, URINE AUTO 2 /HPF (0-3); SPECIFIC GRAVITY URINE AUTO 1.016 (1.002-1.035); SQUAMOUS EPITHELIAL CELL UR AU 0 /HPF (0-6); UROBILINOGEN, URINE AUTO 0.2 mg/dL (0.0-2.0); WBC, URINE AUTO 5 /HPF (0-3)
== END ==
LOC: M LAB REF 13:08
PROVIDERS: ATTEND Physician Assistant Medical
DX: N39.0 Urinary tract infection, site not specified (principal)

== ENCOUNTER → 2019-12-28 | Outpatient (REF) | payer OTHER | LOC: M SFHCLERA 21:01 | PROVIDERS: ATTEND Nurse Practitioner Family | DX: R68.89 Other general symptoms and signs (principal) ==

== ENCOUNTER 2020-06-29 10:07 | Emergency (ER) | payer OTHER ==
[~2020-06-29] VITALS: Ht 177.8 cm; Wt 83.7 kg
--- NOTE | 2020-06-29 11:11 | REPVR ---
PROCEDURE INFORMATION: Exam: XR Left Shoulder Exam date and time: 06/29/2020 10:50 AM Age: 24 years old Clinical indication: Pain; Shoulder; Left TECHNIQUE: Imaging protocol: XR Left shoulder. Views: 2 or more views. COMPARISON: No relevant prior studies available. FINDINGS: Bones/joints: Normal. Soft tissues: Normal. IMPRESSION: No acute findings. Electronically signed by: Harry Sweeney On 06/29/2020 11:11:31 AM
[2020-06-29 11:49] VITALS: BP 131/69
[2020-06-29] MEDS ORDERED: IBUPROFEN 600MG TAB PO ONE (12:00)
== END 2020-06-29 11:52 | disposition home or self-care (01) ==
LOC: M ED 10:07
DX: M25.512 Pain in left shoulder (principal); F17.210 Nicotine dependence, cigarettes, uncomplicated

== ENCOUNTER 2020-08-29 11:20 | Emergency (ER) | payer OTHER ==
[~2020-08-29] VITALS: Ht 177.8 cm; Wt 82.1 kg
[2020-08-29 12:38] LABS: BASO % 0.5 % (0.0-1.0); EOS # 0.2 10^3/uL (0.0-0.5); EOS % 1.9 % (0.0-3.0); HEMATOCRIT 43.2 % (42.0-52.0); HEMOGLOBIN 14.4 g/dl (13.5-17.5); LYMPH # 1.5 10^3/uL (1.5-5.0); LYMPH % 17.4 % (24.0-44.0); MEAN CORPUSCULAR HEMOGLOBIN 31.3 pg (27.0-33.0); MEAN CORPUSCULAR HGB CONC 33.3 g/dl (32.0-36.5); MEAN CORPUSCULAR VOLUME 93.9 fl (80.0-96.0); MONO # 0.6 10^3/uL (0.0-0.8); MONO % 6.6 % (0.0-5.0); NEUTROPHILS # 6.3 10^3/uL (1.5-8.5); NEUTROPHILS % 73.4 % (36.0-66.0); PLATELET COUNT, AUTOMATED 185 10^3/uL (150-450); WHITE BLOOD COUNT 8.6 10^3/uL (4.0-10.0)
--- NOTE | 2020-08-29 12:48 | REPVR ---
PROCEDURE INFORMATION: Exam: XR Chest, 1 View Exam date and time: 08/29/2020 12:26 PM Age: 24 years old Clinical indication: Cough and shortness of breath; Additional info: SOB, chest pain, chills TECHNIQUE: Imaging protocol: XR of the chest Views: Frontal portable sitting upright view of the chest. COMPARISON: CR Chest, 2 view PA, Lat 07/24/2018 1:55 PM FINDINGS: Lungs: The lungs are clear bilaterally. The pulmonary vasculature is normal. Pleural space: No pleural effusion. No pneumothorax. Heart/Mediastinum: The heart is normal in size and contour. Mediastinum: Stable. Bones/joints: Stable. Other findings: In IMPRESSION: No acute cardiopulmonary abnormality identified. Electronically signed by: Hari Leahy On 08/29/2020 12:48:17 PM
[2020-08-29 13:07] LABS: ALBUMIN 3.7 GM/DL (3.2-5.2); ALT/SGPT 35 U/L (12-78); BILIRUBIN,DIRECT 0.2 MG/DL (0.0-0.2); BILIRUBIN,TOTAL 0.8 MG/DL (0.2-1.0); BLOOD UREA NITROGEN 10 MG/DL (7-18); CALCIUM LEVEL 8.8 MG/DL (8.5-10.1); CARBON DIOXIDE LEVEL 30 MEQ/L (21-32); CHLORIDE LEVEL 105 MEQ/L (98-107); CREATININE FOR GFR 0.97 MG/DL (0.70-1.30); GLOMERULAR FILTRATION RATE > 60.0 (>60); GLUCOSE, FASTING 84 MG/DL (70-100); POTASSIUM SERUM 4.1 MEQ/L (3.5-5.1); SODIUM LEVEL 139 MEQ/L (136-145); TOTAL PROTEIN 6.8 GM/DL (6.4-8.2)
[2020-08-29 13:28] LABS: HEPATITIS B SURFACE ANTIGEN NEGATIVE (NEGATIVE)
[2020-08-29 13:55] LABS: HEPATITIS B CORE ANTIBODY IGM NEGATIVE (NEGATIVE); HEPATITIS C VIRUS ABY INDEX 0.1 INDEX (<0.8)
[2020-08-29 13:56] LABS: HEPATITIS A ANTIBODY IGM NEGATIVE (NEGATIVE); HIV 1&2 SCREEN CENTAUR NEGATIVE (NEGATIVE)
[2020-08-29 14:10] VITALS: BP 153/89
[2020-08-29 15:23] LABS: CHLAMYDIA DNA AMPLIFICATION NEGATIVE (NEGATIVE); GC DNA AMPLIFICATION NEGATIVE (NEGATIVE)
== END 2020-08-29 14:10 | disposition home or self-care (01) ==
LOC: M ED 11:20
DX: Z11.3 Encounter for screening for infections with a predominantly sexual mode of transmission (principal); J45.901 Unspecified asthma with (acute) exacerbation; Z20.828 Contact with and (suspected) exposure to other viral communicable diseases; Z79.51 Long term (current) use of inhaled steroids
CPT/HCPCS: 36415; 71045; 80048; 80076; 85025; 86705; 86709; 86780; 86803; 87340; 87389; 87661; 99283; U0003

== ENCOUNTER 2020-09-13 10:30 | Emergency (ER) | payer OTHER ==
[~2020-09-13] VITALS: Ht 177.8 cm; Wt 79.7 kg
[2020-09-13 10:31] VITALS: BP 120/64
== END 2020-09-13 12:23 | disposition home or self-care (01) ==
LOC: M ED 10:30
DX: J02.9 Acute pharyngitis, unspecified (principal); Z20.828 Contact with and (suspected) exposure to other viral communicable diseases
CPT/HCPCS: 87880; 99283; U0003

== ENCOUNTER → 2020-09-24 | Outpatient (REF) | payer OTHER ==
[2020-09-24 18:46] LABS: CHLAMYDIA DNA AMPLIFICATION NEGATIVE (NEGATIVE); GC DNA AMPLIFICATION NEGATIVE (NEGATIVE)
== END ==
LOC: M LAB REF 16:19
PROVIDERS: ATTEND Physician Assistant Medical
DX: Z11.3 Encounter for screening for infections with a predominantly sexual mode of transmission (principal)

== ENCOUNTER 2020-10-02 07:31 | Emergency (ER) | payer OTHER ==
[~2020-10-02] VITALS: Ht 177.8 cm; Wt 81.4 kg
[2020-10-02 07:32] VITALS: BP 140/88
--- NOTE | 2020-10-02 08:28 | REP ---
INDICATION: tender to palmar [id number]/4th metacarpal COMPARISON: None. TECHNIQUE: AP, lateral, bilateral oblique views . FINDINGS: The osseous structures and joint spaces are intact and normal. There is no evidence for acute fracture or dislocation. Surrounding soft tissues are unremarkable. No subcutaneous emphysema or radiodense foreign body. IMPRESSION: Normal right hand radiograph series. No acute fracture or dislocation. <Electronically signed by Nawaf Aguilar > 10/02/20 3042
== END 2020-10-02 08:35 | disposition home or self-care (01) ==
LOC: M ED 07:31
DX: M79.641 Pain in right hand (principal)

== ENCOUNTER 2020-12-26 06:59 | Emergency (ER) | payer OTHER ==
[~2020-12-26] VITALS: Ht 175.3 cm; Wt 86.5 kg
--- OUTSIDE RECORDS SUMMARY | 2020-12-26 07:06 | CCD ---
Author Author [facility] Organization [facility] Address Unknown Phone Unavailable Care Team Providers Care Insurance Auditor Name Role Phone Matt Cronin MD Unavailable Unavailable Matt Cronin MD Unavailable Unavailable Matt Cronin MD Unavailable Unavailable Matt Cronin MD Unavailable Unavailable Matt Cronin MD Unavailable Unavailable Matt Cronin MD Unavailable Unavailable Matt Cronin MD Unavailable Unavailable Matt Cronin MD Unavailable Unavailable Matt Cronin MD Unavailable Unavailable Matt Cronin MD Unavailable Unavailable Matt Cronin MD Unavailable Unavailable Matt Cronin MD Unavailable Unavailable Matt Cronin MD Unavailable Unavailable Matt Cronin MD Unavailable Unavailable Matt Cronin MD Unavailable Unavailable Matt Cronin MD Unavailable Unavailable Matt Cornin MD Unavailable Unavailable Matt Cronin MD Unavailable Unavailable Matt Cronin MD Unavailable Unavailable Matt Cronin MD Unavailable Unavailable Matt Cronin MD Unavailable Unavailable Matt Cronin MD Unavailable Unavailable Matt Cronin MD Unavailable Unavailable Matt Cronin MD Unavailable Unavailable Matt Cronin MD Unavailable Unavailable Matt Cronin MD Unavailable Unavailable Matt Cronin MD Unavailable Unavailable Matt Cronin MD Unavailable Unavailable Matt Cronin MD Unavailable Unavailable Matt Cronin MD Unavailable Unavailable Matt Cronin MD Unavailable Unavailable Matt Cronin MD Unavailable Unavailable Matt Cronin MD Unavailable Unavailable Matt Cronin MD Unavailable Unavailable Matt Cronin MD Unavailable Unavailable Matt Cronin MD Unavailable Unavailable Matt Cronin MD Unavailable Unavailable Matt Cronin MD Unavailable Unavailable Matt Cronin MD Unavailable Unavailable Matt Cronin MD Unavailable Unavailable Matt Cronin MD Unavailable Unavailable Matt Cronni MD Unavailable Unavailable Matt Cronin MD Unavailable Unavailable Matt Cronin MD Unavailable Unavailable Matt Cronin MD Unavailable Unavailable Matt Cronin MD Unavailable Unavailable Matt Cronin MD Unavailable Unavailable Matt Cronin MD Unavailable Unavailable Matt Cronin MD Unavailable Unavailable Matt Cronin MD Unavailable Unavailable Matt Cronin MD Unavailable Unavailable Matt Cronin MD Unavailable Unavailable Matt Cronin MD Unavailable Unavailable Matt Cronin MD Unavailable Unavailable Matt Cronin MD Unavailable Unavailable Matt Cronin MD Unavailable Unavailable Matt Cronin MD Unavailable Unavailable Matt Cronin MD Unavailable Unavailable Matt Cronin MD Unavailable Unavailable Matt Cronin MD Unavailable Unavailable Matt Cronin MD Unavailable Unavailable Matt Cronin MD Unavailable Unavailable Matt Cronin MD Unavailable Unavailable Matt Cronin MD Unavailable Unavailable Matt Cronin MD Unavailable Unavailable Matt Cronin MD Unavailable Unavailable Matt Cronin MD Unavailable Unavailable Matt Cronin MD Unavailable Unavailable Matt Cronin MD Unavailable Unavailable Matt Cronin MD Unavailable Unavailable Matt Cronin MD Unavailable Unavailable Matt Cronin MD Unavailable Unavailable Matt Cronin MD Unavailable Unavailable Matt Cronin MD Unavailable Unavailable Matt Cronin MD Unavailable Unavailable Matt Cronin MD Unavailable Unavailable Matt Cronin MD Unavailable Unavailable Matt Cronin MD Unavailable Unavailable Matt Cronin MD Unavailable Unavailable Matt Cronin MD Unavailable Unavailable Matt Cronin MD Unavailable Unavailable Matt Cronin MD Unavailable Unavailable Matt Cronin MD Unavailable Unavailable Matt Cronin MD Unavailable Unavailable Matt Cronin MD Unavailable Unavailable Matt Cronin MD Unavailable Unavailable Matt Cronin MD Unavailable Unavailable Matt Cronin MD Unavailable Unavailable Matt Cronin MD Unavailable Unavailable Maring, Mansoor PA Unavailable Unavailable Maring, Mansoor PA Unavailable Unavailable Maring, Mansoor PA Unavailable Unavailable Maring, Mansoor PA Unavailable Unavailable Maring, Mansoor PA Unavailable Unavailable Maring, Mansoor PA Unavailable Unavailable Maring, Mansoor PA Unavailable Unavailable Maring, Mansoor PA Unavailable Unavailable Maring, Mansoor PA Unavailable Unavailable Maring, Mansoor PA Unavailable Unavailable Maring, Mansoor PA Unavailable Unavailable Maring, Mansoor PA Unavailable Unavailable Maring, Mansoor PA Unavailable Unavailable Maring, Mansoor PA Unavailable Unavailable Feola, T Meche PA Unavailable Unavailable Feola, T Meche PA Unavailable Unavailable Feola, T Meche PA Unavailable Unavailable Feola, T Meche PA Unavailable Unavailable Feola, T Meche PA Unavailable Unavailable Feola, T Meche PA Unavailable Unavailable Feola, T Meche PA Unavailable Unavailable Feola, T Meche PA Unavailable Unavailable Feola, T Meche PA Unavailable Unavailable Feola, T Meche PA Unavailable Unavailable Feola, T Meche PA Unavailable Unavailable Feola, T Meche PA Unavailable Unavailable Feola, T Meche PA Unavailable Unavailable Feola, T Meche PA Unavailable Unavailable Feola, T Meche PA Unavailable Unavailable Feola, T Meche PA Unavailable Unavailable Feola, T Meche PA Unavailable Unavailable Feola, T Meche PA Unavailable Unavailable Feola, T Meche PA Unavailable Unavailable Feola, T Meche PA Unavailable Unavailable Feola, T Meche PA Unavailable Unavailable Feola, T Meche PA Unavailable Unavailable Feola, T Meche PA Unavailable Unavailable Feola, T Meche PA Unavailable Unavailable Feola, T Meche PA Unavailable Unavailable Feola, T Meche PA Unavailable Unavailable Feola, T Meche PA Unavailable Unavailable Feola, T Meche PA Unavailable Unavailable Feola, T Meche PA Unavailable Unavailable Feola, T Meche PA Unavailable Unavailable Feola, T Meche PA Unavailable Unavailable Feola, T Meche PA Unavailable Unavailable Feola, T Meche PA Unavailable Unavailable Feola, T Meche PA Unavailable Unavailable Feola, T Meche PA Unavailable Unavailable Feola, T Meche PA Unavailable Unavailable Feola, T Meche PA Unavailable Unavailable Re-disclosure Warning The records that you are about to access may contain information from federally-assisted alcohol or drug abuse programs. If such information is present, then the following federally mandated warning applies: This information has been disclosed to you from records protected by federal confidentiality rules (42 CFR part 2). The federal rules prohibit you from making any further disclosure of this information unless further disclosure is expressly permitted by the written consent of the person to whom it pertains or as otherwise permitted by 42 CFR part 2. A general authorization for the release of medical or other information is NOT sufficient for this purpose. The Federal rules restrict any use of the information to criminally investigate or prosecute any alcohol or drug abuse patient.The records that you are about to access may contain highly sensitive health information, the redisclosure of which is protected by Article 27-F of the [facility] Public Health law. If you continue you may have access to information: Regarding HIV / AIDS; Provided by facilities licensed or operated by the [facility] Office of Mental Health; or Provided by the [facility] Office for People With Developmental Disabilities. If such information is present, then the following [facility] mandated warning applies: This information has been disclosed to you from confidential records which are protected by state law. State law prohibits you from making any further disclosure of this information without the specific written consent of the person to whom it pertains, or as otherwise permitted by law. Any unauthorized further disclosure in violation of state law may result in a fine or half-way sentence or both. A general authorization for the release of medical or other information is NOT sufficient authorization for further disc losure. Family History Family Member Name Family Member Gender Family Member Status Date o f Status Description Data Source(s) Unknown Unknown Problem [facility] ([facility]) Encounters Encounter Providers Location Date Indications Data Source(s ) O Attender: Mansoor TALBOT 12/11/19 10:45:20 AM EST - 12/11/2020 11:17:31 AM EST [facility]uTap ([facility] ) O Attender: Meche TALBOT 021 04:04:36 PM EST - 11/28/2020 05:22:04 PM EST [facility]ap ([facility] ) [facility] [place] [address] [facility], [facility] [address] 02/27/2020 12:00:00 AM EDT eCW1 ([facility]) Outpatient Attender: Abad Cronin MD FP 02/07/2020 09:01:02 PM EDT [facility] Outpatient Attender: Abad Cronin MD FP 12/30/2019 08:01:07 PM EST [facility] [place] [address] [place] [address] 12/28/2019 12:00:00 AM EST eCW1 ([facility]) Medications Medication Brand Name Start Date Product Form Dose Route Admi nistrative Instructions Pharmacy Instructions Status Indications Reaction Description Data Source(s) Ondansetron 4 MG Oral Tablet [Zofran] Zofran 4 MG Zofran 4 M G 12/28/2019 12:00:00 AM EST active 1 tablet eCW1 ([facility]) Insurance Providers Payer name Policy type / Coverage type Policy ID Covered democrat ID Covered democrat's relationship to bundy Policy Bundy Plan Information [facility] COMMUNITY PLAN [facility] [id number] SP [id number] [employer] emp [id number] Employee [id number] [employer] N[employer] emp [id number] Employee [id number] [employer] [id number] Self [id number] [facility] O [id number] S [id number] SELF PAY UNAVAILABLE SP UNAVAILA BLE [facility] COMMUNITY PLAN MCDO [id number] SP [id number] Medicaid P [id number] S [id number] MEDICAID [id number] SP [id number] Managed Care - MVP P [id number] S [id number] Medicaid S [id number] S [id number] SELF PAY ONLY [id number] SP [id number] [employer] Maintenance Organization (HMO) [id number] Self [id number] MVP MCDO [id number] SP [id number] [employer] Maintenance Organization (HMO) [id number] Self [id number] [employer] (HMO) [id number] Self [id number] [employer] O [id number] S [id number] MVP [facility] [id number] SP [id number] [facility] BCBS CHP P [id number] S [id number] MEDICAID [id number] SP [id number] [facility] DEPT [id number] SP [id number] SELF PAY ONLY [id number] SP [id number] [facility] [id number] SP [id number] [id number] MO2 [id number] Surgeries/Procedures Procedure Description Date Indications Data Source(s) Influenza A+B 12/28/2019 12:00:00 AM EST eCW1 ([facility]) STREP A ASSAY W/OPTIC 12/28/2019 12:00:00 AM EST eCW1 ([facility]) URINE-NO MICRO 12/28/2019 12:00:00 AM EST eCW1 ([facility]) Results ID Date Data Source [id number] 11/28/2020 12:00:00 AM EST [facility] Name Value Range Interpretation Code Description Data Fawn rce(s) Supporting Document(s) SARS coronavirus 2 RNA [Presence] in Res piratory specimen by TEN with probe detection NEGATIVE [facility] This lab was ordered by Alessio Swanson and reported by [employer]. ID Date Data Source [id number] 11/28/2020 12:00:00 AM EST [facility] Name Value Range Interpretation Code Description Data Fawn rce(s) Supporting Document(s) Carestart Rapid COVID Antigen Test Negative [facility] This lab was reported by Alessio florentino. ID Date Data Source [id number] 09/13/2020 11:15:00 AM EST [facility] Name Value Range Interpretation Code Description Data Fawn rce(s) Supporting Document(s) SARS coronavirus 2 RNA [facility] This lab was ordered by [facility] and reported by [facility]. ID Date Data Source [id number] 08/29/2020 12:22:00 PM EDT [facility] Name Value Range Interpretation Code Description Data Fawn rce(s) Supporting Document(s) SARS coronavirus 2 RNA [facility] This lab was ordered by [facility] and reported by [facility]. ID Date Data Source GATS (NEGATIVE STREP SCREEN) 12/28/2019 12:00:00 AM EST eCW1 ([facility]) Name Value Range Interpretation Code Description Data Fawn rce(s) Supporting Document(s) FULL REPORT IN LAB NOTES (eCW and Medent). GATS CULTURE (NEG STREP SCR) eCW1 ([facility]) Procedure Vital Signs ID Date Data Source UNK Name Value Range Interpretation Code Description Data Source(s) Diastolic blood pressure 83 mm[Hg] 83 mm[Hg] eCW1 ([facility]) Systolic blood pressure 129 mm[Hg] 129 mm[Hg] e CW1 ([facility]) Body temperature 98.7 [degF] 98.7 [degF] eCW1 ( [facility]) Respiratory rate 18 /min 18 /min eCW1 (On license of [facility]) Heart rate 97 /min 97 /min eCW1 ([facility]) Body mass index (BMI) [Ratio] 27.46 kg/m2 27.46 kg/m2 eCW1 ([facility]) Body height 69 [in_us] 69 [in_us] eCW1 ([facility]) Body weight Measured 186 [lb_av] 186 [lb_av] eC W1 ([facility]) Patient Treatment Plan of Care Planned Activity Planned Date Details Description Data Source (s) Ondansetron 4 MG Oral Tablet [Zofran] 12/28/2019 12:00:00 AM EST eCW1 ([facility])
--- OUTSIDE RECORDS SUMMARY | 2020-12-26 07:52 | CCD ---
Author Author [facility] Organization [facility] Address Unknown Phone Unavailable Care Team Providers Care Shop Hand Name Role Phone Matt Cronin MD Unavailable [...] is protected by Article 27-F of the [facility] Public Health law. If you continue you may have access to information: Regarding HIV / AIDS; Provided by facilities licensed or operated by the [facility] Office of Mental Health; or Provided by the [facility] Office for People With Developmental Disabilities. If such information is present, then the following [facility] mandated warning applies: This information has [...] law may result in a fine or care home sentence or both. A general authorization for the release of medical or other information is NOT sufficient authorization for further disc losure. Family History Family Member Name Family Member Gender Family Member Status Date o f Status Description Data Source(s) Unknown Unknown Problem MEDENT ([facility]) Encounters Encounter Providers Location Date Indications Data Source(s ) O Attender: Mansoor TALBOT 12/11/19 10:45:20 AM EST - 12/11/2020 11:17:31 AM EST [facility]Tap ([facility] ) O Attender: Meche TALBOT 021 04:04:36 PM EST - 11/28/2020 05:22:04 PM EST [facility] ([facility] ) [facility] [place] [address] [address] 02/27/2020 12:00:00 AM EDT eCW1 ([facility]) Outpatient Attender: Abad LIM 02/07/2020 09:01:02 PM EDT [facility] Outpatient Attender: Abad LIM 12/30/2019 08:01:07 PM EST [facility] [place] [address] [place] [address] 12/28/2019 12:00:00 AM EST eCW1 ([facility]) Medications Medication Brand Name Start Date Product Form Dose Route Admi nistrative Instructions Pharmacy Instructions Status Indications Reaction Description Data Source(s) Ondansetron 4 MG Oral Tablet [Zofran] Zofran 4 MG Zofran 4 M G 12/28/2019 12:00:00 AM EST active 1 tablet eCW1 ([facility]) Insurance Providers Payer name Policy type / Coverage type Policy ID Covered democrat ID Covered democrat's relationship to bundy Policy Bundy Plan Information [facility] COMMUN[facility] [id number] SP [id number] [employer] emp [id number] Employee [id number] [employer] N[employer] emp [id number] Employee [id number] [employer] Co. [id number] Self [id number] [facility] O [id number] S [id number] SELF PAY UNAVAILABLE SP UNAVAILA BLE [facility] COMMUNITY PLAN MCDO [id number] SP [id number] Medicaid P [id number] S [id number] MEDICAID [id number] SP [id number] Managed Care - MVP P [id number] S [id number] Medicaid S [id number] S [id number] SELF PAY ONLY [id number] SP [id number] [employer] Maintenance Organization (HMO) [id number] Self [id number] MVP MCDO [id number] SP [id number] [employer] Maintenance Organization (HMO) [id number] Self [id number] [employer] Maintenance [employer] (HMO) [id number] Self [id number] [employer] [facility] O [id number] S [id number] MVP MCDO [id number] SP [id number] [employer] CHP P [id number] S [id number] MEDICAID [id number] SP [id number] [facility] STRIKE WARFARE/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 [id number] SP [id number] [facility] PHY [id number] MO2 [id number] Surgeries/Procedures Procedure Description Date Indications Data Source(s) Influenza A+B 12/28/2019 12:00:00 AM EST eCW1 ([facility]) STREP A ASSAY W/OPTIC 12/28/2019 12:00:00 AM EST eCW1 ([facility]) URINE-NO MICRO 12/28/2019 12:00:00 AM EST eCW1 ([facility]) Results ID Date Data Source [id number] 11/28/2020 12:00:00 AM EST [facility] Name Value Range Interpretation Code Description Data Fawn rce(s) Supporting Document(s) SARS coronavirus 2 RNA [Presence] in Res piratory specimen by TEN with probe detection NEGATIVE [facility] This lab was ordered by Alessio [place] and reported by [employer]. ID Date Data Source [id number] 11/28/2020 12:00:00 AM EST [facility] Name Value Range Interpretation Code Description Data Fawn rce(s) Supporting Document(s) Carestart Rapid COVID Antigen Test Negative [facility] This lab was reported by [facility]. ID Date Data Source [id number] 09/13/2020 11:15:00 AM EST [facility] Name Value Range Interpretation Code Description Data Fawn rce(s) Supporting Document(s) SARS coronavirus 2 RNA [facility] This lab was ordered by [facility] and reported by [facility]. ID Date Data Source [id number] 08/29/2020 12:22:00 PM EDT [facility] Name Value Range Interpretation Code Description Data Fawn rce(s) Supporting Document(s) SARS coronavirus 2 RNA [facility] This lab was ordered by [facility] and reported by [facility]. ID Date Data Source GATS (NEGATIVE STREP SCREEN) 12/28/2019 12:00:00 AM EST eCW1 ([facility]) Name Value Range Interpretation Code Description Data Fawn rce(s) Supporting Document(s) FULL REPORT IN LAB NOTES (eCW and [facility]). GATS CULTURE (NEG STREP SCR) eCW1 ([facility]) Procedure Vital Signs ID Date Data Source UNK Name Value Range Interpretation Code Description Data Source(s) Diastolic blood pressure 83 mm[Hg] 83 mm[Hg] eCW1 ([facility]) Systolic blood pressure 129 mm[Hg] 129 mm[Hg] e CW1 ([facility]) Body temperature 98.7 [degF] 98.7 [degF] eCW1 ( [facility]) Respiratory rate 18 /min 18 /min eCW1 ([facility]) Heart rate 97 /min 97 /min eCW1 ([facility]) Body mass index (BMI) [Ratio] 27.46 kg/m2 27.46 kg/m2 eCW1 ([facility]) Body height 69 [in_us] 69 [in_us] eCW1 [facility] Body weight Measured 186 [lb_av] 186 [lb_av] eC W1 ([facility]) Patient Treatment Plan of Care Planned Activity Planned Date Details Description Data Source (s) Ondansetron 4 MG Oral Tablet [Zofran] 12/28/2019 12:00:00 AM EST eCW1 ([facility])
--- NOTE | 2020-12-26 07:54 | REP ---
INDICATION: productive cough COMPARISON: 08/29/2020 TECHNIQUE: Portable AP view of the chest FINDINGS: The mediastinum and cardiac silhouette are stable and within normal limits for portable technique. The lung jones are clear without acute consolidation, effusion, or pneumothorax. Skeletal structures are intact. IMPRESSION: No acute cardiopulmonary process appreciated. <Electronically signed by Nawaf Aguilar > 12/26/20 2066
[2020-12-26] MEDS ORDERED: VENTAER INH (08:20)
[2020-12-26] MEDS ORDERED: DOXY-350 PO (08:20)
[2020-12-26] MEDS ORDERED: NAPR-837 PO (08:20)
[2020-12-26 08:36] VITALS: BP 130/82
== END 2020-12-26 08:38 | disposition home or self-care (01) ==
LOC: M ED 06:59
DX: J20.9 Acute bronchitis, unspecified (principal); M67.833 Other specified disorders of tendon, right wrist; Z20.822 Contact with and (suspected) exposure to COVID-19; J45.909 Unspecified asthma, uncomplicated; F17.200 Nicotine dependence, unspecified, uncomplicated; Z79.51 Long term (current) use of inhaled steroids
CPT/HCPCS: 71045; 99284; U0003

== ENCOUNTER 2021-02-24 16:21 | Emergency (ER) | payer OTHER ==
[~2021-02-24] VITALS: Ht 180.3 cm; Wt 81.8 kg
[~2021-02-24 16:21] MED LIST changes: +DOXY-350 PO; +VENTAER INH
[2021-02-24 16:28] VITALS: BP 152/84
== END 2021-02-24 17:27 | disposition left against medical advice (07) ==
LOC: M ED 16:21
DX: Z53.21 Procedure and treatment not carried out due to patient leaving prior to being seen by health care provider (principal)

== ENCOUNTER 2021-03-14 12:34 | Emergency (ER) | payer OTHER ==
[~2021-03-14] VITALS: Ht 180.3 cm; Wt 82.4 kg
[2021-03-14 12:34] VITALS: BP 138/80
== END 2021-03-14 14:58 | disposition left against medical advice (07) ==
LOC: M ED 12:34
DX: Z53.21 Procedure and treatment not carried out due to patient leaving prior to being seen by health care provider (principal)

== ENCOUNTER → 2021-06-19 | Outpatient (CLI) | payer OTHER ==
--- NOTE | 2021-06-19 15:44 | REP ---
INDICATION: M25.531 RIGHT WRIST PAIN. COMPARISON: None. TECHNIQUE: Four views FINDINGS: Normal bone texture and alignment PA joints well maintained. No fracture or dislocation. Soft tissues unremarkable. IMPRESSION: Normal exam <Electronically signed by Cayden Arnold > 06/19/21 0051
--- NOTE | 2021-06-19 15:45 | REP ---
INDICATION: M25.531 RIGHT WRIST PAIN. COMPARISON: None. TECHNIQUE: Three views FINDINGS: Normal bone texture and alignment. No fracture or dislocation. Joints well maintained. Soft tissues unremarkable. IMPRESSION: Negative exam <Electronically signed by Cayden Arnold > 06/19/21 1224
[2021-06-19 19:42] LABS: BLOOD UREA NITROGEN 11 MG/DL (7-18); CARBON DIOXIDE LEVEL 30 MEQ/L (21-32); CHLORIDE LEVEL 107 MEQ/L (98-107); CREATININE FOR GFR 0.93 MG/DL (0.70-1.30); GLOMERULAR FILTRATION RATE > 60.0 (>60); GLUCOSE, FASTING 112 MG/DL (70-100); POTASSIUM SERUM 4.3 MEQ/L (3.5-5.1); SODIUM LEVEL 143 MEQ/L (136-145)
[2021-06-19 19:43] LABS: ALBUMIN 3.9 GM/DL (3.2-5.2); ALT/SGPT 45 U/L (12-78); BILIRUBIN,TOTAL 0.5 MG/DL (0.2-1.0); CALCIUM LEVEL 8.7 MG/DL (8.5-10.1); TOTAL PROTEIN 6.7 GM/DL (6.4-8.2)
[2021-06-19 19:50] LABS: TOTAL 25(OH) VITAMIN D 21.3 NG/ML (30.0-100.0)
[2021-06-19 20:20] LABS: HEMOGLOBIN A1c 5.5 %
[2021-06-19 20:29] LABS: HEP C VIRUS AB INDEX SOURCE PT 0.1 INDEX (0.0-0.8)
[2021-06-19 20:30] LABS: HIV 1&2 SCREEN CENTAUR NEGATIVE (NEGATIVE)
== END ==
LOC: M WUC 15:10
PROVIDERS: ATTEND Physician Assistant
DX: M25.531 Pain in right wrist (principal); E55.9 Vitamin D deficiency, unspecified; R73.01 Impaired fasting glucose; Z11.4 Encounter for screening for human immunodeficiency virus [HIV]; Z11.59 Encounter for screening for other viral diseases

== ENCOUNTER 2021-06-28 11:48 | Emergency (ER) | payer OTHER ==
[~2021-06-28] VITALS: Ht 180.3 cm; Wt 84.2 kg
--- NOTE | 2021-06-28 12:38 | REP ---
INDICATION: left sided rib pain/SOB. COMPARISON: Multiple FINDINGS: The superior mediastinal structures are midline. The cardiac silhouette is unremarkable in size, shape, and position. The diaphragmatic surfaces of the lungs are regular, and the costophrenic angles are clear. The pulmonary jones are clear. The imaged osseous structures are intact. IMPRESSION: There is no acute cardiopulmonary disease. <Electronically signed by Bobo Graves > 06/28/21 2828
[2021-06-28 14:39] LABS: HEMATOCRIT 43.8 % (42.0-52.0); HEMOGLOBIN 14.8 g/dl (13.5-17.5); MEAN CORPUSCULAR HEMOGLOBIN 31.1 pg (27.0-33.0); MEAN CORPUSCULAR HGB CONC 33.8 g/dl (32.0-36.5); PLATELET COUNT, AUTOMATED 176 10^3/uL (150-450); RED BLOOD COUNT 4.76 10^6/uL (4.30-6.10); WHITE BLOOD COUNT 3.9 10^3/uL (4.0-10.0)
[2021-06-28 15:09] LABS: ATYPICAL LYMPH 4 % (0-5); LYMPHOCYTES 40 % (16-44); MONOCYTES 7 % (0-5); NEUTROPHILS 47 % (28-66)
[2021-06-28 15:11] LABS: PLATELET ESTIMATE NORMAL (NORMAL)
[2021-06-28 15:44] LABS: BLOOD UREA NITROGEN 13 MG/DL (7-18); CARBON DIOXIDE LEVEL 31 MEQ/L (21-32); CHLORIDE LEVEL 105 MEQ/L (98-107); CK-MB VALUE MASS < 1.0 NG/ML (<3.6); CPK CREATINE PHOSPHOKINASE 131 U/L (39-308); CREATININE FOR GFR 0.85 MG/DL (0.70-1.30); GLOMERULAR FILTRATION RATE > 60.0 (>60); GLUCOSE, FASTING 90 MG/DL (70-100); MB/CK RELATIVE INDEX 0.76 (< OR =4); POTASSIUM SERUM 4.4 MEQ/L (3.5-5.1); SODIUM LEVEL 140 MEQ/L (136-145); TROPONIN I < 0.02 NG/ML (< 0.10)
[2021-06-28 16:11] VITALS: BP 141/62
--- NOTE | 2021-06-28 19:30 | ECGEPIP ---
[facility] - ED Test Date: 2021-06-28 Pat Name: CHANDU ENNIS Department: Room: - Gender: Male Security Manager: AMY : 1995 Requested By: KATHY Thorpe PA-C Order Number: [id number] Reading MD: Dev Ratliff Measurements Intervals [place] Rate: 66 P: 63 MI: 158 QRS: 100 QRSD: 94 T: 50 QT: 364 QTc: 381 Interpretive Statements Normal sinus rhythm Rightward axis Incomplete right bundle branch block Nonspecific ST T wave changes cw 07/24/[address] T wave changes Electronically Signed on 06-28-2021 19:30:22 EDT by Dev Ratliff
== END 2021-06-28 16:14 | disposition home or self-care (01) ==
LOC: M ED 11:48
DX: R07.89 Other chest pain (principal); M79.604 Pain in right leg; M79.605 Pain in left leg; V03.00XA Pedestrian on foot injured in collision with car, pick-up truck or van in nontraffic accident, initial encounter; Y92.481 Parking lot as the place of occurrence of the external cause; Y93.9 Activity, unspecified; Y99.9 Unspecified external cause status; I45.19 Other right bundle-branch block

== ENCOUNTER → 2023-01-23 | Outpatient (CLI) | payer OTHER ==
[~2023-01-23] MED LIST changes: +ATOM40CA9 PO; -DOXY-350 PO; +DOXY-444 PO; +NICO14PA TD
[2023-01-23 18:03] LABS: BASO % 0.7 % (0.0-1.0); EOS # 0.1 10^3/uL (0.0-0.5); EOS % 2.9 % (0.0-3.0); HEMATOCRIT 41.3 % (42.0-52.0); HEMOGLOBIN 13.7 g/dl (13.5-17.5); LYMPH # 1.4 10^3/uL (1.5-5.0); LYMPH % 34.2 % (24.0-44.0); MEAN CORPUSCULAR HGB CONC 33.2 g/dl (32.0-36.5); MEAN CORPUSCULAR VOLUME 93.4 fl (80.0-96.0); MONO # 0.4 10^3/uL (0.0-0.8); MONO % 8.8 % (2.0-8.0); NEUTROPHILS # 2.2 10^3/uL (1.5-8.5); NEUTROPHILS % 53.2 % (36.0-66.0); PLATELET COUNT, AUTOMATED 175 10^3/uL (150-450); RED BLOOD COUNT 4.42 10^6/uL (4.30-6.10); WHITE BLOOD COUNT 4.2 10^3/uL (4.0-10.0)
[2023-01-23 18:33] LABS: LIPASE 29 U/L (12-53)
[2023-01-23 18:39] LABS: ALKALINE PHOSPHATASE 68 U/L (46-116); ALT/SGPT 21 U/L (7.0-40); AST/SGOT 18 U/L (<34); BILIRUBIN,TOTAL 0.3 MG/DL (0.3-1.2); BLOOD UREA NITROGEN 7 MG/DL (9-23); CALCIUM LEVEL 8.6 MG/DL (8.5-10.1); CARBON DIOXIDE LEVEL 29 MMOL/L (20-31); CHLORIDE LEVEL 105 MMOL/L (98-107); GLOMERULAR FILTRATION RATE > 60.0 (>60); GLUCOSE, FASTING 78 MG/DL (60-100); POTASSIUM SERUM 4.3 MMOL/L (3.5-5.1); SODIUM LEVEL 139 MMOL/L (136-145); THYROID STIMULATING HORMONE 0.827 uIU/ML (0.55-4.78); TOTAL PROTEIN 6.5 G/DL (5.7-8.2)
[2023-01-23 19:05] LABS: HIV 1&2 SCREEN CENTAUR NEGATIVE (NEGATIVE)
[2023-01-23 19:18] LABS: GC DNA AMPLIFICATION NEGATIVE (NEGATIVE)
[2023-01-28 02:07] LABS: F002-IgE Milk < 0.10 kU/L (Class 0); F013-IgE Peanut 0.15 kU/L (Class 0/I); F014-IgE Soybean < 0.10 kU/L (Class 0); F026-IgE Pork < 0.10 kU/L (Class 0); F027-IgE Beef < 0.10 kU/L (Class 0); F245-IgE Egg, Whole < 0.10 kU/L (Class 0); FX02-IgE Food Mix (Sea Foods) Positive (.)
== END ==
LOC: M PLALAB 15:15
PROVIDERS: ATTEND Physician Assistant
DX: Z11.3 Encounter for screening for infections with a predominantly sexual mode of transmission (principal); R10.9 Unspecified abdominal pain

== ENCOUNTER 2023-06-02 13:42 | Emergency (ER) | payer OTHER ==
[~2023-06-02] VITALS: Ht 177.8 cm; Wt 82.0 kg
[2023-06-02 13:43] VITALS: BP 134/77; TEMP 98.5; O2SAT 99
== END 2023-06-02 15:26 | disposition left against medical advice (07) ==
LOC: M ED 13:42
DX: Z53.21 Procedure and treatment not carried out due to patient leaving prior to being seen by health care provider (principal)

== ENCOUNTER → 2023-11-26 | Outpatient (CLI) | payer OTHER ==
[2023-11-26 11:25] LABS: HEMATOCRIT 42.7 % (42.0-52.0); HEMOGLOBIN 14.1 g/dl (13.5-17.5); MEAN CORPUSCULAR HEMOGLOBIN 30.8 pg (27.0-33.0); MEAN CORPUSCULAR VOLUME 93.2 fl (80.0-96.0); PLATELET COUNT, AUTOMATED 171 10^3/uL (150-450); RED BLOOD COUNT 4.58 10^6/uL (4.30-6.10); WHITE BLOOD COUNT 3.5 10^3/uL (4.0-10.0)
[2023-11-26 11:43] LABS: HEMOGLOBIN A1c 5.4 % (4.0-6.0)
[2023-11-26 11:46] LABS: ALBUMIN 3.9 G/DL (3.2-5.2); ALKALINE PHOSPHATASE 68 U/L (46-116); ALT/SGPT 18 U/L (7.0-40); AST/SGOT 14 U/L (<34); BILIRUBIN,TOTAL 0.4 MG/DL (0.3-1.2); BLOOD UREA NITROGEN 11 MG/DL (9-23); CALCIUM LEVEL 8.9 MG/DL (8.5-10.1); CARBON DIOXIDE LEVEL 31 MMOL/L (20-31); CHLORIDE LEVEL 104 MMOL/L (98-107); CHOLESTEROL LEVEL 117 MG/DL (<200); CHOLESTEROL RISK RATIO 2.23 (<5); CREATININE FOR GFR 0.89 MG/DL (0.70-1.30); GLOMERULAR FILTRATION RATE > 60.0 (>60); GLUCOSE, FASTING 100 MG/DL (60-100); HDL CHOLESTEROL 52.3 MG/DL (>40); LDL CHOLESTEROL 44.1 MG/DL (<100); NON-HDL-C 64.7 MG/DL; POTASSIUM SERUM 4.2 MMOL/L (3.5-5.1); SODIUM LEVEL 139 MMOL/L (136-145); THYROID STIMULATING HORMONE 1.284 uIU/ML (0.55-4.78); TOTAL PROTEIN 6.8 G/DL (5.7-8.2); TRIGLYCERIDES LEVEL 103 MG/DL (<150)
== END ==
LOC: M RAD 10:34
PROVIDERS: ATTEND Family Medicine
DX: D64.9 Anemia, unspecified (principal); R53.83 Other fatigue; E03.9 Hypothyroidism, unspecified; I49.8 Other specified cardiac arrhythmias

== ENCOUNTER → 2024-05-25 | Outpatient (REF) | payer OTHER, MEDICAID ==
[~2024-05-25] MED LIST changes: +DOXY-440 PO; -DOXY-444 PO
[2024-05-25 17:54] LABS: Trichomonas vaginalis (AMP) NOT DETECTED (NEGATIVE)
[2024-05-25 18:18] LABS: GC DNA AMPLIFICATION NEGATIVE (NEGATIVE)
[2024-05-25 18:55] LABS: THYROID STIMULATING HORMONE 2.065 uIU/ML (0.55-4.78)
[2024-05-25 18:56] LABS: TOTAL 25(OH) VITAMIN D 16.4 NG/ML (20.0-100.0)
[2024-05-25 18:59] LABS: ALBUMIN 4.2 G/DL (3.2-5.2); ALKALINE PHOSPHATASE 71 U/L (46-116); ALT/SGPT 31 U/L (7.0-40); AST/SGOT 14 U/L (<34); BILIRUBIN,TOTAL 0.5 MG/DL (0.3-1.2); BLOOD UREA NITROGEN 10 MG/DL (9-23); CALCIUM LEVEL 9.4 MG/DL (8.5-10.1); CARBON DIOXIDE LEVEL 27 MMOL/L (20-31); CHLORIDE LEVEL 107 MMOL/L (98-107); CHOLESTEROL LEVEL 162 MG/DL (<200); CHOLESTEROL RISK RATIO 3.18 (<5); CREATININE FOR GFR 0.92 MG/DL (0.70-1.30); GLOMERULAR FILTRATION RATE > 60.0 (>60); GLUCOSE, FASTING 77 MG/DL (60-100); HDL CHOLESTEROL 50.9 MG/DL (>40); LDL CHOLESTEROL 83.7 MG/DL (<100); NON-HDL-C 111.1 MG/DL; POTASSIUM SERUM 4.1 MMOL/L (3.5-5.1); SODIUM LEVEL 140 MMOL/L (136-145); TOTAL PROTEIN 7.2 G/DL (5.7-8.2); TRIGLYCERIDES LEVEL 137 MG/DL (<150)
[2024-05-25 19:04] LABS: HEMOGLOBIN A1c 5.5 % (4.0-6.0)
== END ==
LOC: M LAB REF 16:19
PROVIDERS: ATTEND Physician Assistant
DX: Z11.9 Encounter for screening for infectious and parasitic diseases, unspecified (principal)

== ENCOUNTER 2024-07-07 18:09 | Emergency (ER) | payer MEDICAID, OTHER ==
[~2024-07-07] VITALS: Ht 180.3 cm; Wt 86.4 kg
[2024-07-07] MEDS: IBUPROFEN 800 MG TAB PO ONE (19:59)
[2024-07-07] MEDS: ACETAMINOPHEN 500 MG TAB PO ONE (20:13)
[2024-07-07] MEDS ORDERED: BENZ200C70 PO (21:22)
[2024-07-07] MEDS ORDERED: VENTAER INH (21:22)
[2024-07-07 21:23] VITALS: BP 128/68; TEMP 99.6; O2SAT 97
== END 2024-07-07 21:32 | disposition home or self-care (01) ==
LOC: M ED 18:09
DX: U07.1 COVID-19 (principal); J45.909 Unspecified asthma, uncomplicated; Z91.013 Allergy to seafood; Z79.52 Long term (current) use of systemic steroids; Z79.899 Other long term (current) drug therapy

== ENCOUNTER → 2024-08-30 | Outpatient (REF) | payer OTHER ==
[~2024-08-30] MED LIST changes: +BENZ200C70 PO
[2024-08-30 13:25] LABS: APPEARANCE, URINE CLEAR (CLEAR); BACTERIA, URINE AUTO NEGATIVE (NEGATIVE); BILIRUBIN, URINE AUTO NEGATIVE (NEGATIVE); BLOOD, URINE BLOOD NEGATIVE (NEGATIVE); COLOR, URINE YELLOW (YELLOW); GLUCOSE, URINE (UA) AUTO NEGATIVE (NEGATIVE); KETONE, URINE AUTO NEGATIVE (NEGATIVE); LEUKOCYTE ESTERASE, URINE AUTO NEGATIVE (NEGATIVE); MUCUS, URINE SMALL (NEGATIVE); NITRITE, URINE AUTO NEGATIVE (NEGATIVE); PROTEIN, URINE AUTO NEGATIVE (NEGATIVE); RBC, URINE AUTO 0 /HPF (0-3); SPECIFIC GRAVITY URINE AUTO 1.023 (1.002-1.035); SQUAMOUS EPITHELIAL CELL UR AU 0 /HPF (0-6); UROBILINOGEN, URINE AUTO 0.2 mg/dL (0.0-2.0); WBC, URINE AUTO 1 /HPF (0-3)
== END ==
LOC: M LAB REF 12:56
PROVIDERS: ATTEND Physician Assistant
DX: Z20.2 Contact with and (suspected) exposure to infections with a predominantly sexual mode of transmission (principal)